=== PATIENT | male | born 1935 | race Caucasian/White ===

== ENCOUNTER 2017-03-16 12:40 | Inpatient (IN) | payer OTHER, BC ==
[2017-03-16] MEDS ORDERED: morphine CARPU-JECT 4 MG/1 ML DISP.SYRIN IVPUSH ONE ×2 (14:52→15:30)
--- NOTE | 2017-03-16 15:13 | PDOC ---
History of Present Illness - General Chief Complaint: Pain, Acute Stated Complaint: BURST APPENDIX Time Seen by Provider: 03/16/17 14:51 - History of Present Illness Initial Comments: 03/16/17 15:12 81 M with h/o ascending aortic aneurysm, BPH, incarcerated R femoral hernia s/p mesh repair, presenting to ER with 1 day of RLQ pain. Pt states that the pain began this morning while eating. It is localized to RLQ without radiation. Pt denies N/V. Denies diarrhea/constipation. Pt states that the pain does not feel similar to his prior femoral hernias, as the location of the pain is higher in his abdomen. Pt denies F/C. Denies dysuria. Denies flank pain. Past History - Past Medical History Allergies/Adverse Reactions: Allergies Allergy/AdvReac Type Severity Reaction Status Date / Time No Known Allergies Allergy Verified 03/16/17 12:42 Home Medications: Ambulatory Orders Omeprazole [Prilosec (RX)] 20 mg PO DAILY 10/27/13 Cardiac Disorders: Yes (aaa last checked 09/2013) COPD: No - Surgical History Abdominal Surgery: Yes (sbo, hernia) Cholecystectomy: Yes GI Surgery: Yes (sbo with hernia repair) Orthopedic Surgery: Yes (rotator cuff x3) - Suicide/Smoking/Psychosocial Hx Smoking History: Never smoked Have you smoked in the past 12 months: No Information on smoking cessation initiated: No Hx Alcohol Use: Yes (wine) Drug/Substance Use Hx: No Substance Use Type: None Hx Substance Use Treatment: No Review of Systems - Review of Systems Comments:: 03/16/17 15:22 "GENERAL/CONSTITUTIONAL: No fever or chills. No weakness. HEAD, EYES, EARS, NOSE AND THROAT: No change in vision. No ear pain or discharge. No sore throat. CARDIOVASCULAR: No chest pain or shortness of breath. RESPIRATORY: No cough, wheezing, or hemoptysis. GASTROINTESTINAL: + RLQ pain. GENITOURINARY: No dysuria, frequency, or change in urination. MUSCULOSKELETAL: No joint or muscle swelling or pain. No neck or back pain. SKIN: No rash NEUROLOGIC: No headache, vertigo, loss of consciousness, or change in strength/ sensation. ENDOCRINE: No increased thirst. No abnormal weight change. HEMATOLOGIC/LYMPHATIC: No anemia, easy bleeding, or history of blood clots. ALLERGIC/IMMUNOLOGIC: No hives or skin allergy. " *Physical Exam - Vital Signs Last Vital Signs Temp Pulse Resp BP Pulse Ox 98.4 F 77 18 142/82 100 03/16/17 12:43 03/16/17 12:43 03/16/17 12:43 03/16/17 12:43 03/16/17 12:43 - Physical Exam Comments: 03/16/17 15:22 "GENERAL: Awake, alert, and fully oriented, in no acute distress HEAD: No signs of trauma EYES: PERRLA, EOMI, sclera anicteric, conjunctiva clear ENT: Auricles normal inspection, hearing grossly normal, nares patent, oropharynx clear without exudates. Moist mucosa NECK: Nontender, no stepoffs, Normal ROM, supple, no lymphadenopathy, JVD, or masses LUNGS: Breath sounds equal, clear to auscultation bilaterally. No wheezes, and no crackles HEART: Regular rate and rhythm, normal S1 and S2, no murmurs, rubs or gallops ABDOMEN: + RLQ tenderness, no palpable masses, no distention EXTREMITIES: Normal range of motion, no edema. No clubbing or cyanosis. No cords, erythema, or tenderness NEUROLOGICAL: Cranial nerves II through XII intact. 5/5 strength and sensation in all extremities, Normal speech, normal gait SKIN: Warm, Dry, normal turgor, no rashes or lesions noted. " ED Treatment Course - LABORATORY CBC & Chemistry Diagram: 03/18/17 08:10 03/17/17 05:15 - RADIOLOGY Radiology Studies Ordered: Category Date Time Status ABDOMEN & PELVIS CT WITH CONTR [CT] Stat CT Scan 03/16/17 14:51 Ordered Medical Decision Making - Medical Decision Making 03/16/17 15:22 81 M with RLQ pain. Concerning for appy vs incarcerated hernia. Pt has ascending aortic aneurysm but no chest pain at this time. - Labs - CTAP - IVF, pain control Pt signed out to oncoming attending at 5PM, pending CT results and possible surgical consultation. Case discussed in detail with oncoming Emergency Physician including history, physical exam and ancillary studies. Oncoming Emergency Physician has assumed care for the patient and will complete the evaluation and treatment. Patient is aware of the plan. *DC/Admit/Observation/Transfer Diagnosis at time of Disposition: Lower abdominal pain - Referrals - Patient Instructions - Post Discharge Activity
[2017-03-16 15:51] LABS: BASO % 0.5 % (0-2.0); EOS % 0.8 % (0-4.5); HEMATOCRIT 43.4 % (35.4-49); HEMOGLOBIN 14.1 GM/dL (11.7-16.9); LYMPH % 5.7 % (8-40); MCH 29.2 pg (25.7-33.7); MCHC 32.5 g/dl (32.0-35.9); MEAN CELL VOLUME 89.8 fl (80-96); MEAN PLT VOLUME 10.6 fl (7.5-11.1); MONO % 5.5 % (3.8-10.2); NEUT % 87.5 % (42.8-82.8); PLATELET COUNT 268 K/MM3 (134-434); RBC 4.84 M/mm3 (4.00-5.60)
[2017-03-16 16:04] LABS: INR 0.95 (0.82-1.09); PROTHROMBIN TIME (PATIENT) 10.7 SEC (9.98-11.88)
[2017-03-16 16:07] LABS: ACTIVATED PTT 34.5 SECONDS (26.9-34.4)
--- NOTE | 2017-03-16 16:10 | HP ---
Admitting History and Physical - Admission Chief Complaint: Severe RLQ pain gradually progressing over the last 2 days. seen today in the office and sent to the ER. History of Present Illness: Thoracic aortic aneurysm. Mild-Mod AI. Episodes SVT S/P inguinal hernia repair. Femoral hernia repair. 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 No: Renal Failure, Renal Inusuff, Cancer, Hematuria, Hemodialysis, Neurogenic Bladder, Renal Calculi, UTI Musculoskeletal: Yes: Osteoarthritis - Past Surgical History Past Surgical History: Yes: Cholecystectomy, Hernia Repair (Recent RIH, SBR) - Smoking History Smoking history: Never smoked Have you smoked in the past 12 months: No - Alcohol/Substance Use Hx Alcohol Use: Yes (wine) - Social History ADL: Independent History of Recent Travel: No Home Medications - Allergies Allergies/Adverse Reactions: Allergies Allergy/AdvReac Type Severity Reaction Status Date / Time No Known Allergies Allergy Verified 03/16/17 12:42 - Home Medications Home Medications: Ambulatory Orders Omeprazole [Prilosec (RX)] 20 mg PO DAILY 10/27/13 Family Disease History - Family Disease History Family History: Unremarkable Review of Systems - Review of Systems Constitutional: reports: Loss of Appetite Eyes: reports: No Symptoms HENT: reports: No Symptoms Neck: reports: No Symptoms Cardiovascular: reports: No Symptoms Respiratory: reports: No Symptoms Gastrointestinal: reports: Abdominal Pain. denies: No Symptoms, Bloating, Constipation, Diarrhea, Dysphagia, Indigestion, Melena, Nausea, Rectal Bleeding , Vomiting, Vomiting Blood, Other Genitourinary: reports: No Symptoms. denies: Burning, Discharge, Dysuria, Flank Pain, Frequency, Hematuria, Incontinence, Lesions, Menses, Pain, Testicular Mass, Testicular Pain, Testicular Swelling, Urgency, Vaginal Bleeding , Other Breasts: reports: No Symptoms Reported Musculoskeletal: reports: No Symptoms Integumentary: reports: No Symptoms Neurological: reports: No Symptoms Endocrine: reports: No Symptoms Hematology/Lymphatic: reports: No Symptoms Psychiatric: reports: No Symptoms Pain Intensity: 9 Physical Examination Vital Signs: Vital Signs Temperature 98.4 F 03/16/17 12:43 Pulse Rate 77 03/16/17 12:43 Respiratory Rate 18 03/16/17 12:43 Blood Pressure 142/82 03/16/17 12:43 O2 Sat by Pulse Oximetry (%) 100 03/16/17 12:43 Constitutional: Yes: Well Nourished, Anxious, Moderate Distress, Pallor Eyes: Yes: Conjunctiva Clear, EOM Intact HENT: Yes: WNL, Atraumatic, Normocephalic Neck: Yes: WNL, Supple, Trachea Midline Cardiovascular: Yes: WNL, Regular Rate and Rhythm Respiratory: Yes: Regular, CTA Bilaterally Gastrointestinal: Yes: Normal Bowel Sounds, Tenderness (RLQ), Tenderness, Rebound. No: WNL, Soft, Abdomen, Obese, Ascites, Distention, Hematemesis, Hemorrhoids, Hepatomegaly, Hernia, Hyperactive Bowel Sounds, Hypoactive Bowel Sounds, Melena, Palpable Mass, Pulsatile Mass, Rectal Bleeding, Splenomegaly, Tenderness, Epigastrium, Vomiting, Other ...Rectal Exam: Yes: Deferred Renal/: Yes: WNL. No: Anuria, Bladder Distention, CVA Tenderness - Left, CVA Tenderness - Right, Smith Present, Hematuria, Incontinence, Menses Present, Oliguria, Polyuria, Scrotal Edema, Urethral Discharge, Other Breast(s): Yes: WNL Musculoskeletal: Yes: WNL Extremities: Yes: WNL Edema: No Peripheral Pulses WNL: Yes Integumentary: Yes: WNL Neurological: Yes: WNL, Alert, Oriented ...Motor Strength: WNL Psychiatric: Yes: WNL Labs: CBC, BMP 03/16/17 15:45 Laboratory Results - last 24 hr 03/16/17 03/16/17 03/16/17 15:16 15:30 15:45 WBC 15.0 H D RBC 4.84 D Hgb 14.1 D Hct 43.4 D MCV 89.8 MCH 29.2 MCHC 32.5 RDW 14.0 Plt Count 268 MPV 10.6 Neutrophils % 87.5 H Lymphocytes % 5.7 L D Monocytes % 5.5 Eosinophils % 0.8 Basophils % 0.5 PT with INR INR PTT (Actin FS) Sodium Potassium Chloride Carbon Dioxide Anion Gap BUN Creatinine Creat Clearance w eGFR Random Glucose Lactic Acid 1.1 Calcium Total Bilirubin AST ALT Alkaline Phosphatase Creatine Kinase 101 Troponin I < 0.02 D Total Protein Albumin Lipase Blood Type Antibody Screen 03/16/17 03/16/17 03/16/17 15:45 15:45 15:45 WBC RBC Hgb Hct MCV MCH MCHC RDW Plt Count MPV Neutrophils % Lymphocytes % Monocytes % Eosinophils % Basophils % PT with INR 10.70 INR 0.95 PTT (Actin FS) 34.5 H Sodium 138 Potassium 4.2 Chloride 101 Carbon Dioxide 29 Anion Gap 8 BUN 19 H Creatinine 1.2 Creat Clearance w eGFR 57.96 Random Glucose 90 Lactic Acid Calcium 9.1 Total Bilirubin 1.1 H D AST 19 D ALT 23 Alkaline Phosphatase 72 Creatine Kinase Troponin I Total Protein 7.8 D Albumin 4.0 D Lipase 130 Blood Type A POSITIVE Antibody Screen Negative Imaging - Results Cat Scan: Report Reviewed Problem List - Problems (1) Acute abdominal pain Code(s): R10.9 - UNSPECIFIED ABDOMINAL PAIN (2) Acute abdomen Assessment/Plan: Free air in the peritoneum, bowl perforation on CT abdomen/pelvis Surgical consulted Surgery. IV ABX. Code(s): R10.0 - ACUTE ABDOMEN
[2017-03-16 16:20] LABS: ALK PHOS 72 U/L (45-117); ANION GAP 8 (8-16); BILIRUBIN,TOTAL 1.1 mg/dL (0.2-1.0); BLOOD UREA NITROGEN 19 mg/dL (7-18); CALCIUM 9.1 mg/dL (8.5-10.1); CHLORIDE 101 mmol/L (98-107); CO2 29 mmol/L (21-32); CREATININE 1.2 mg/dL (0.7-1.3); GLUCOSE,RANDOM 90 mg/dL (74-106); LIPASE 130 U/L (73-393); POTASSIUM 4.2 mmol/L (3.5-5.1); SGOT/AST 19 U/L (15-37); SGPT/ALT 23 U/L (12-78); SODIUM 138 mmol/L (136-145); TOT PROT 7.8 g/dl (6.4-8.2)
[2017-03-16] MEDS ORDERED: HYDROmorphone HCL CARPU-JECT 1 MG/1 ML DISP.SYRIN IVPUSH ONE (17:43)
[2017-03-16] MEDS ORDERED: PIPERACILLIN/TAZOB 3.375 GM 50 ML IVPB ONE (17:48)
[2017-03-16] MEDS ORDERED: HYDROmorphone HCL CARPU-JECT 2 MG/1 ML DISP.SYRIN ONE ×2 (18:00→18:52)
[2017-03-16] MEDS ORDERED: PIPERACILLIN/TAZOB 3.375 GM 3.375 GM/50 ML BAG IVPB ONE (18:01)
[2017-03-16] MEDS ORDERED: HYDROmorphone HCL CARPU-JECT 1 MG/1 ML DISP.SYRIN IVPUSH STA (18:50)
--- NOTE | 2017-03-16 18:54 | PDOC ---
*Physical Exam - Vital Signs Last Vital Signs Temp Pulse Resp BP Pulse Ox 98.4 F 77 18 142/82 100 03/16/17 12:43 03/16/17 12:43 03/16/17 12:43 03/16/17 12:43 03/16/17 12:43 ED Treatment Course - LABORATORY CBC & Chemistry Diagram: 03/16/17 15:45 03/16/17 15:45 - ADDITIONAL ORDERS Additional order review: Laboratory Results 03/16/17 03/16/17 03/16/17 15:45 15:45 15:45 PT with INR 10.70 INR 0.95 PTT (Actin FS) 34.5 H Sodium 138 Potassium 4.2 Chloride 101 Carbon Dioxide 29 Anion Gap 8 BUN 19 H Creatinine 1.2 Creat Clearance w eGFR 57.96 Random Glucose 90 Lactic Acid Calcium 9.1 Total Bilirubin 1.1 H D AST 19 D ALT 23 Alkaline Phosphatase 72 Creatine Kinase Troponin I Total Protein 7.8 D Albumin 4.0 D Lipase 130 Blood Type A POSITIVE Antibody Screen Negative 03/16/17 03/16/17 15:30 15:16 PT with INR INR PTT (Actin FS) Sodium Potassium Chloride Carbon Dioxide Anion Gap BUN Creatinine Creat Clearance w eGFR Random Glucose Lactic Acid 1.1 Calcium Total Bilirubin AST ALT Alkaline Phosphatase Creatine Kinase 101 Troponin I < 0.02 D Total Protein Albumin Lipase Blood Type Antibody Screen 03/16/17 15:45 RBC 4.84 D MCV 89.8 MCHC 32.5 RDW 14.0 MPV 10.6 Neutrophils % 87.5 H Lymphocytes % 5.7 L D Monocytes % 5.5 Eosinophils % 0.8 Basophils % 0.5 - Medications Given in the ED: ED Medications Discontinued Medications Generic Name Dose Route Start Last Admin Trade Name Freq PRN Reason Stop Dose Admin Hydromorphone HCl 0.5 mg 03/16/17 17:43 03/16/17 18:37 Dilaudid Injection - IVPUSH 03/16/17 17:44 0.5 mg ONCE ONE Administration Piperacillin/Tazobactam/Dextrose 50 mls @ 100 mls/hr 03/16/17 17:48 03/16/17 18:38 Zosyn 3.375gm Ivpb (Premix) IVPB 03/16/17 18:17 100 mls/hr ONCE ONE Administration Protocol Morphine Sulfate 4 mg 03/16/17 15:30 03/16/17 16:13 Morphine Injection - IVPUSH 03/16/17 15:31 4 mg ONCE ONE Administration Medical Decision Making - Medical Decision Making 03/16/17 18:52 radiologist called and the ct scan revealed perforated intestine with mesenteric edema called Dr Corral -paged Dr Leigh as per Dr Corral's request -IV antibiotics given *DC/Admit/Observation/Transfer Diagnosis at time of Disposition: Lower abdominal pain - Referrals - Patient Instructions - Post Discharge Activity
[2017-03-16] MEDS ORDERED: SODIUM CHLORIDE 1,000 ML IV SCH (19:00)
[2017-03-16] MEDS ORDERED: PIPERACILLIN/TAZOB 3.375 GM/50 ML PRE-DOCKED IVPB SCH (19:00)
[2017-03-16] MEDS ORDERED: morphine CARPU-JECT 4 MG/1 ML DISP.SYRIN IVPUSH PRN (19:26)
--- NOTE | 2017-03-16 20:48 | PN ---
Progress Note (short form) - Note Progress Note: surgery pt seen and examined. full consult dictated. 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 wbc [address] showing perforated viscous with inflammatory process involving small bowel and trasverse colon causing possible sbo as well. on exam pt is distended with localized rebound and guarding in rlq. pt requiring narcotics for pain. Plan- perforated viscous, localized peritonitis, possible sbo. clinically suspect perforated small bowel secondary to obstruction at previous anastamosis. With peritoneal findings safest option is surgery. Pt may contain the perforation and respond to abx but could also end up with a bowel obstruction from the process. At this point patient and daughter offered surgery and they agree. They are not interested in conservative management. agree with judie. will move in direction of laparotomy and likely small bowel resection. if this involves the colon the patient may require a colostomy.
[2017-03-16] MEDS ORDERED: PROPOFOL 20 ML ONE (20:56)
[2017-03-16] MEDS ORDERED: LIDOCAINE HCL/PF 2% SDV 5ML VIAL ONE (20:56)
[2017-03-16] MEDS ORDERED: ROCURONIUM BROMIDE 50 MG/5 ML VIAL ONE ×2 (20:56→21:49)
[2017-03-16] MEDS ORDERED: ONDANSETRON 4 MG/2 ML VIAL IVPUSH PRN ×2 (20:57→23:05)
[2017-03-16] MEDS ORDERED: ACETAMINOPHEN 325 MG TABLET (FP) PO PRN (20:57)
[2017-03-16] MEDS ORDERED: BENZOIN/ALOE VERA/STORAX/TOLU 58 ML BOTTLE ONE (22:06)
[2017-03-16] MEDS ORDERED: GLYCOPYRROLATE 0.2 MG/1 ML VIAL ONE ×2 (22:08)
[2017-03-16] MEDS ORDERED: NEOSTIGMINE METHYLSULFATE 0.5 MG/ML - 10 ML MDV ONE (22:08)
--- NOTE | 2017-03-16 22:21 | CONS ---
DATE OF CONSULTATION: 03/16/2017 REASON FOR CONSULTATION: Perforated viscus. This is an emergency room consultation. REQUESTING PHYSICIAN: Emergency room physician. BRIEF HISTORY: This is an 81-year-old male with previous small-bowel resection for an incarcerated femoral hernia, who, since that time, had issues with chronic abdominal pain requiring a capsule study and was told to be kept on a low-fiber diet. He states he has not felt quite right for several weeks, but specifically, this morning, he woke up feeling well, but after eating fruit for breakfast, he developed severe abdominal pain, mostly in the right lower quadrant. He did not have fever. He did not have nausea or vomiting. Because of this pain, he came into the emergency room where he has been requiring narcotic medication. He was noted to have an elevated white blood cell count of 15,000 with a shift, and he went for a CAT scan of his abdomen and pelvis which was significant for a perforated viscus with extraluminal air located in the right lower quadrant next to an inflamed loop of small bowel and a previous small-bowel anastomosis. The transverse colon also appeared to be somewhat pulled into this process, and the psychiatric rn was concerned for possible bowel obstruction as well. The patient received 0.5 mg of Dilaudid 2 times, and he received 4 mg of morphine. PAST MEDICAL HISTORY: Significant for arthritis. HOME MEDICATIONS: Include meloxicam, Protonix, and Maalox. SOCIAL HISTORY: Negative for alcohol, negative for tobacco. PAST SURGICAL HISTORY: Includes a femoral hernia repair which appears to be done laparoscopically with a bowel resection. FAMILY HISTORY: Significant for a sister with liver cancer. ALLERGIES: He has no known drug allergies. REVIEW OF SYSTEMS: General: Denies fatigue or malaise. Cardiac: Denies chest pain or palpitations. Respiratory: No shortness of breath or wheeze. Gastrointestinal: As in HPI. Denies diarrhea. Denies blood in his stool. Denies recent weight loss. Genitourinary: Denies dysuria. Musculoskeletal: Admits to arthritic pain, particularly in his shoulder. Psychiatric: Denies anxiety, depression, or hearing voices. PHYSICAL EXAMINATION: General: This is a well-developed, well-nourished, 81-year-old male in no distress. He appears to be comfortable. Vital Signs: He is afebrile currently at 99.1. His heart rate is 87. His blood pressure is 142/74. He is saturating at 95%. HEENT: His head is normocephalic. His sclerae are anicteric. Neck: Supple. Chest: Clear. Abdomen: Soft. It is mildly distended. He has multiple laparoscopic scars. He has significant right lower quadrant tenderness with rebound and guarding. Extremities: No edema. LABORATORY DATA: His white blood cell count is elevated at 15.0, with 87% neutrophils. His PTT is slightly elevated at 34, but his INR is normal. His chemistries are unremarkable with the exception of a mildly elevated total bilirubin of 1.1. His lactic acid is normal at 1.1. IMAGING: As in HPI. ASSESSMENT: An 81-year-old male with history of previous small-bowel resection, told to be on a low-fiber diet after a significant small-bowel workup postoperatively, presents with severe abdominal pain, leukocytosis, and localized peritonitis on physical exam. CAT scan is consistent with a perforated viscus with a likely bubble of air located within the small bowel mesentery, although this is not for certain. That inflammatory process appears to involve the small bowel including the anastomosis from before as well as pulling in the transverse colon. The possibility of a small-bowel obstruction is noted as well. At this point, I suspect he has perforated small bowel at the location of his anastomosis, and it likely has perforated into the small bowel mesentery which is keeping his exam findings localized. The safest bet would be to proceed with surgery which would be a laparotomy and likely a small-bowel resection. The patient is 81 years old and currently still remains stable, and this is his best shot at having a safe surgery prior to any deterioration. Although it is possible that he may respond well to antibiotics and the perforation may seal itself, the fact that there is possibly a bowel obstruction already showing on CAT scan which means that even if the infection is contained, he may not be able to eat without surgery, and the longer that we wait, the more deconditioned he will be and the less likely he will have a good outcome. At this point, I have offered the patient and his daughter emergency surgery, and they both are agreeable. They do not wish to attempt conservative management. At this point, we will move in the direction of surgery which again will likely be a laparotomy and a small-bowel resection, although if this does involve the large intestine, he may require a colostomy. The patient and his daughter understand this. I agree with Zosyn antibiotic which will cover E. coli and other gram negative and enteric-related sarah. Risks and benefits of surgery have been explained to the patient in detail. These are including, but not limited to, the possibility of injury to viscera or bladder, the possibility of anastomotic leak, the possibility of future obstruction, the possibility of future hernia, the possibility of wound infection, the possibility of wound dehiscence, plus a multitude of medical risks including, but not limited to, cardiac, neurologic, pulmonary, and vascular complications, even . The patient also may bleed, requiring a blood transfusion. He understands these risks. He understands that he may require an ostomy of some sort. At this point, the patient is agreeable, and we will move in the direction of surgery. DO KATHY MELCHOR/[id number]
--- NOTE | 2017-03-16 22:30 | OP ---
Operative Note - Note: Operative Date: 03/16/17 Pre-Operative Diagnosis: perforated viscous Operation: exploratory laparotomy, small bowel resection, lysis of adhesions Findings: perforated ileal anastamosis into mesentery with dense adhesions and proximal bowel densely adhesed to femoral mesh Post-Operative Diagnosis: Same as Pre-op Surgeon: Elmer Webb Anesthesiologist/CLINICAL TRIAL LEADER: Elmer Parisi Anesthesia: General Specimens Removed: perfoated ileum with fecal stained mesentery and fecalized content Estimated Blood Loss (mls): 50 Operative Report Dictated: Yes
[2017-03-16] MEDS ORDERED: MIDAZOLAM HCL 2 MG/2 ML SINGLE DOSE VIAL ONE (22:42)
[2017-03-16] MEDS ORDERED: FLUMAZENIL 0.5 MG/5 ML VIAL ONE (22:47)
[2017-03-16] MEDS ORDERED: PROMETHAZINE HCL 25 MG/1 ML VIAL IVPUSH PRN (23:05)
[2017-03-16] MEDS ORDERED: oxyCODONE HCL 5 MG TABLET PO PRN (23:05)
[2017-03-16] MEDS ORDERED: LACTATED RINGERS SOLUTION 1,000 ML IV SCH (23:15)
--- NOTE | 2017-03-16 23:34 | OP ---
DATE OF OPERATION: 03/16/2017 PREOPERATIVE DIAGNOSIS: Perforated viscus. POSTOPERATIVE DIAGNOSIS: Perforated viscus. PROCEDURE: Exploratory laparotomy, lysis of adhesions, small bowel resection, lavage. SURGEON: Elmer Webb D.O. BULK TRUCK DRIVER: None. ANESTHESIA: Elmer Parisi M.D. (general) BRIEF HISTORY: This is an 81-year-old male, presented to the [facility] emergency room with peritoneal findings and a CAT scan showing perforated viscus. He was brought for urgent surgery and started on Zosyn antibiotic. PROCEDURE: Patient is placed in a supine position. After general anesthesia was initiated, the abdomen was prepped and draped in a sterile fashion, and Smith catheter was inserted as well as a nasogastric tube. A vertical incision was made supraumbilical going inferior approximately 5 inches. Electrocautery was used going through skin and subcutaneous tissue. Previous Prolene sutures were removed. The peritoneum was entered sharply under direct visualization. At this point, a loop of ileum was densely adhesed to the abdominal wall and carefully taken down. This led right into an anastomotic area of edematous bowel. This was delivered into the abdominal field. The mesentery was swollen, and there appeared to be an area of perforation within the mesentery with focalized material staining it. This anastomotic area that appeared to have perforated was run distal into the terminal ileum and the cecum. It was run proximally approximately 1 foot, at which point it dove into the pelvis and was densely adhesed to a mesh from a previous femoral hernia repair. This was quite densely attached, and it appeared to be difficult to remove without injuring the bowel or any structures that it may be attached to. The bowel was dilated up to the anastomosis, and therefore it was felt that this adhesed area in the pelvis was not a source of obstruction. The decision was made at this point to do a small bowel resection anastomosis and not continue with an extensive lysis of adhesions in this 81-year-old patient who was suffering from peritonitis in an acute event. At this point, a side to side anastomosis was done from proximal and distal bowel from the area of perforation. This was done with a GIA80 staple load. The enterotomy was then closed with a TA60 staple load. The area of perforation and anastomosis that was done in the previous surgery was then resected with a Ligasure device and sent to pathology marked as specimen. The mesenteric defect was closed with a running chromic suture. The anastomosis that was inspected was intact, there was no bleeding, no breaks, no sign of ischemia. able to be detached from proximal to distal and distal to proximal and manual palpation showed that the anastomosis was patent. At this point, the bowel that was reanastomosed was placed back into the abdominal cavity. Vigorous lavage was done with warm saline. All return was clear. Again, the area of proximal bowel to the anastomosis that was stuck in the pelvis was reinspected and again it was felt that this was unable to be safely removed without adding extensive OR time and likely requiring further bowel resection. It was felt that the safest thing to do was to limit the operation to the scope of fixing the acute problem and perforation that brought the patient in. At this point, the fascia of the midline was closed with running PDS suture. The fascia had good integrity. There was a small ventral hernia which was incorporated in the closure and repaired. The skin was then irrigated and closed with sole, and Dermabond dressing was placed. Overall the patient tolerated the procedure well with no complications. Blood loss was approximately 50 mL. The patient's disposition was to go to the recovery room, then to the intensive care unit for overnight observation. Smith catheter and NG tube would remain in place. DO KATHY MELCHOR/[id number] MTDD
[2017-03-17] MEDS ORDERED: morphine CARPU-JECT 10 MG/1 ML DISP.SYRIN IVPUSH PRN (00:08)
[2017-03-17] MEDS: SODIUM CHLORIDE 1,000 ML IV SCH ×2 (00:30→18:43)
[2017-03-17] MEDS ORDERED: PIPERACILLIN/TAZOB 4.5 GM 4.5 GM in DEXTROSE 5%-WATER - 100 ML IVPB SCH (02:00)
[2017-03-17] MEDS ORDERED: PIPERACILLIN/TAZOB 4.5 GM 4.5 GM in DEXTROSE 5%-WATER - 100 ML IVPB ONE (02:15)
[2017-03-17 02:46] VITALS: BMI 26.3
--- NOTE | 2017-03-17 05:40 | CONSULT ---
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 He was taken to OR last night for small bowel resection at site of old anastomosis , there was minimal leak and not signifcant soiling. Pt was extubated in PACU, was hemodynamically stable. Pt cont on Pip/Sundar for broad coverage. Tx to ICU for overnight observation. This am stable and ready for tx to floor. 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),Aortic Insufficiency (SVT),Other Gastrointestinal Other (SBO) Renal/ BPH (BPH),Other Past Surgical History Past Surgical History Cholecystectomy (Recent RIH, SBR),Hernia Repair Smoking History Smoking history Never smoked Alcohol/Substance Use Hx Alcohol Use Yes: wine Social History ADL Independent History of Recent Travel No Ambulatory Orders Omeprazole [Prilosec (RX)] 20 mg PO DAILY 10/27/13 Active Medications Acetaminophen (Tylenol -) 650 mg PO Q4H PRN PRN Reason: FEVER Chlorhexidine Gluconate (Hibiclens For Decolonization -) 1 applic TP HS TAWNY Enoxaparin Sodium (Lovenox -) 40 mg SQ DAILY TAW[facility] Fentanyl (Sublimaze Injection -) 25 mcg IVPUSH [id number] PRN PRN Reason: PAIN-PACU ORDER X 4 DOSES ONLY Last Admin: 03/16/17 22:38 Dose: 25 mcg Lactated Ringer's (Lactated Ringers Solution) 1,000 mls @ 75 mls/hr IV ASDIR [facility] Piperacillin Sod/Tazobactam (Sod 4.5 gm/ Dextrose) 100 mls @ 200 mls/hr IVPB Q8H-IV [facility] Sodium Chloride (Normal Saline -) 1,000 mls @ 125 mls/hr IV ASDIR [facility] Last Admin: 03/17/17 00:30 Dose: 100 mls Morphine Sulfate (Morphine Injection -) 4 mg IVPUSH Q4H PRN PRN Reason: PAIN LEVEL 6-10 Mupirocin (Bactroban Ointment (For Decolonization) -) 1 applic NS BID [facility] Stop: 03/22/17 09:59 Ondansetron HCl (Zofran Injection) 4 mg IVPUSH Q6H PRN PRN Reason: NAUSEA Ondansetron HCl (Zofran Injection) 4 mg IVPUSH Q6H PRN PRN Reason: NAUSEA AND/OR VOMITING Oxycodone HCl (Roxicodone -) 5 mg PO Q4H PRN PRN Reason: Pain Level > 4 Stop: 03/17/17 23:04 Pantoprazole Sodium (Protonix Iv) 40 mg IVPUSH DAILY TAW[facility] Promethazine HCl (Phenergan Injection -) 12.5 mg IVPUSH Q6H PRN PRN Reason: NAUSEA-FOR RESCUE AFTER 15 MIN CBCD WBC 15.0 K/mm3 (4.0-10.0) H D 03/16/17 15:45 RBC 4.84 M/mm3 (4.00-5.60) D 03/16/17 15:45 Hgb 14.1 GM/dL (11.7-16.9) D 03/16/17 15:45 Hct 43.4 % (35.4-49) D 03/16/17 15:45 MCV 89.8 fl (80-96) 03/16/17 15:45 MCHC 32.5 g/dl (32.0-35.9) 03/16/17 15:45 RDW 14.0 % (11.9-15.9) 03/16/17 15:45 Plt Count 268 K/MM3 (134-434) 03/16/17 15:45 MPV 10.6 fl (7.5-11.1) 03/16/17 15:45 CMP Sodium 138 mmol/L (136-145) 03/16/17 15:45 Potassium 4.2 mmol/L (3.5-5.1) 03/16/17 15:45 Chloride 101 mmol/L (98-107) 03/16/17 15:45 Carbon Dioxide 29 mmol/L (21-32) 03/16/17 15:45 Anion Gap 8 (8-16) 03/16/17 15:45 BUN 19 mg/dL (7-18) H 03/16/17 15:45 Creatinine 1.2 mg/dL (0.7-1.3) 03/16/17 15:45 Creat Clearance w eGFR 57.96 (>60) 03/16/17 15:45 Random Glucose 90 mg/dL (74-106) 03/16/17 15:45 Calcium 9.1 mg/dL (8.5-10.1) 03/16/17 15:45 Total Bilirubin 1.1 mg/dL (0.2-1.0) H D 03/16/17 15:45 AST 19 U/L (15-37) D 03/16/17 15:45 ALT 23 U/L (12-78) 03/16/17 15:45 Alkaline Phosphatase 72 U/L (45-117) 03/16/17 15:45 Total Protein 7.8 g/dl (6.4-8.2) D 03/16/17 15:45 Albumin 4.0 g/dl (3.4-5.0) D 03/16/17 15:45 CARDIAC ENZYMES Creatine Kinase 101 IU/L (39-308) 03/16/17 15:16 Troponin I < 0.02 ng/ml (0.00-0.05) D 03/16/17 15:16 Vital Signs Temp 98.6 F 03/17/17 02:43 Pulse 71 03/17/17 02:43 Resp 18 03/17/17 02:43 BP 117/71 03/17/17 02:43 Pulse Ox 95 03/17/17 02:54 Intake & Output 03/16/17 03/16/17 03/17/17 11:59 23:59 11:59 Intake Total 2700 100 Output Total 200 230 200 Balance -200 2470 -100 Weight 81.193 kg 80.83 kg Intake: IV 2700 100 Output: Urine 200 200 200 Estimated Blood Loss 30 Other: Voiding Method Indwelling Catheter Height 5 ft 9 in 5 ft 9 in Body Mass Index (BMI) 26.4 26.3 Weight Measurement Method Est/Stated by Patient ROS: 10 pt review negative except as per HPI PE: Gen: awake, alert, non-toxic HEENT: NCAT, no jvp, PERRL PULM: clear, no distress CV: RRR, no mrg appreciated ABD: soft, still tend RU/LQ, near absent bowel sounds (denies flatus), incision CDI EXT:w/w/p 2+ pulses, no edema Neuro: intact, pleasant, non focal exam A/ POD #1 after Small bowel resection in ICU for overnight observation P/ -NPO until flatus/BS -cont Pip/Sundar -PPI and SCD -ok for med/surg Clyde Ashley ACNP [id number]
[2017-03-17 06:19] LABS: BASO % 0.1 % (0-2.0); HEMATOCRIT 33.5 % (35.4-49); HEMOGLOBIN 10.8 GM/dL (11.7-16.9); LYMPH % 4.1 % (8-40); MCH 28.7 pg (25.7-33.7); MCHC 32.2 g/dl (32.0-35.9); MEAN CELL VOLUME 89.2 fl (80-96); MEAN PLT VOLUME 10.4 fl (7.5-11.1); MONO % 5.2 % (3.8-10.2); NEUT % 90.6 % (42.8-82.8); PLATELET COUNT 200 K/MM3 (134-434); RBC 3.75 M/mm3 (4.00-5.60); RDW 13.8 % (11.9-15.9); WHITE BLOOD COUNT 16.4 K/mm3 (4.0-10.0)
[2017-03-17 06:41] LABS: CHLORIDE 106 mmol/L (98-107); POTASSIUM 4.4 mmol/L (3.5-5.1); SODIUM 141 mmol/L (136-145)
[2017-03-17 06:50] LABS: ALBUMIN 2.5 g/dl (3.4-5.0); ALK PHOS 94 U/L (45-117); ANION GAP 7 (8-16); BILIRUBIN,TOTAL 2.6 mg/dL (0.2-1.0); BLOOD UREA NITROGEN 18 mg/dL (7-18); CALCIUM 7.4 mg/dL (8.5-10.1); CO2 28 mmol/L (21-32); CREATININE 1.2 mg/dL (0.7-1.3); GLUCOSE,RANDOM 135 mg/dL (74-106); MAGNESIUM 1.7 mg/dL (1.8-2.4); PHOSPHOROUS 3.6 mg/dL (2.5-4.9); SGOT/AST 174 U/L (15-37); SGPT/ALT 161 U/L (12-78); TOT PROT 5.1 g/dl (6.4-8.2)
[2017-03-17] MEDS ORDERED: MAGNESIUM SULF 50% (8.12 MEQ/2 ML-1 GM VIAL) IVPB ONE (07:38)
[2017-03-17] MEDS ORDERED: MAGNESIUM OXIDE 400 MG TABLET (FP) PO ONE (07:38)
[2017-03-17] MEDS ORDERED: MAGNESIUM SULFATE IN WATER 2 GM/50 ML IVPB IVPB ONE (08:00)
--- NOTE | 2017-03-17 08:50 | PN ---
Physical Exam: SUBJECTIVE: Patient seen and examined The patient is an 81 year old male with a history of an incarcerated femoral hernia, SVT, a TAAA who presented for severe abdominal pain over 1 day found to have a perforated viscous and admitted to the ICU s/p a small bowel resection. The patient reports significant improvement in his symptoms from 1 day ago and has no complaints this morning. No acute events overnight. OBJECTIVE: Vital Signs Period Temp Pulse Resp BP Sys/Carballo Pulse Ox Last 24 Hr 98.4 F-99.1 F 68-144 12-30 89-163/52-82 60-100 GENERAL: The patient is awake, alert, and fully oriented, in no acute distress. HEAD: Normal with no signs of trauma. EYES: sclera anicteric, conjunctiva clear. No ptosis. ENT: oropharynx clear without exudates, moist mucous membranes. NECK: Trachea midline, full range of motion, supple. LUNGS: Breath sounds equal, clear to auscultation bilaterally, no wheezes, no crackles, no accessory muscle use. HEART: Regular rate and rhythm, S1, S2 without murmur, rub or gallop. ABDOMEN: Vertical incision with a dry dressing and sole in place. Soft, nontender, nondistended, no guarding, no rebound, no hepatosplenomegaly, no masses. EXTREMITIES: 2+ pulses, warm, well-perfused, no edema. NEUROLOGICAL: Normal speech, gait not observed. PSYCH: Normal mood, normal affect. SKIN: Warm, dry, normal turgor, no rashes or lesions noted Laboratory Results - last 24 hr 03/16/17 03/16/17 03/16/17 15:16 15:30 15:45 WBC 15.0 H D RBC 4.84 D Hgb 14.1 D Hct 43.4 D MCV 89.8 MCH 29.2 MCHC 32.5 RDW 14.0 Plt Count 268 MPV 10.6 Neutrophils % 87.5 H Lymphocytes % 5.7 L D Monocytes % 5.5 Eosinophils % 0.8 Basophils % 0.5 PT with INR INR PTT (Actin FS) Sodium Potassium Chloride Carbon Dioxide Anion Gap BUN Creatinine Creat Clearance w eGFR Random Glucose Lactic Acid 1.1 Calcium Phosphorus Magnesium Total Bilirubin AST ALT Alkaline Phosphatase Creatine Kinase 101 Troponin I < 0.02 D Total Protein Albumin Lipase Blood Type Antibody Screen 03/16/17 03/16/1718 15:45 15:45 15:45 WBC RBC Hgb Hct MCV MCH MCHC RDW Plt Count MPV Neutrophils % Lymphocytes % Monocytes % Eosinophils % Basophils % PT with INR 10.70 INR 0.95 PTT (Actin FS) 34.5 H Sodium 138 Potassium 4.2 Chloride 101 Carbon Dioxide 29 Anion Gap 8 BUN 19 H Creatinine 1.2 Creat Clearance w eGFR 57.96 Random Glucose 90 Lactic Acid Calcium 9.1 Phosphorus Magnesium Total Bilirubin 1.1 H D AST 19 D ALT 23 Alkaline Phosphatase 72 Creatine Kinase Troponin I Total Protein 7.8 D Albumin 4.0 D Lipase 130 Blood Type A POSITIVE Antibody Screen Negative 03/16/17 03/17/17 03/17/17 19:00 05:15 05:15 WBC 16.4 H RBC 3.75 L D Hgb 10.8 L D Hct 33.5 L D MCV 89.2 MCH 28.7 MCHC 32.2 RDW 13.8 Plt Count 200 D MPV 10.4 Neutrophils % 90.6 H Lymphocytes % 4.1 L D Monocytes % 5.2 Eosinophils % 0.0 D Basophils % 0.1 PT with INR INR PTT (Actin FS) Sodium 141 Potassium 4.4 Chloride 106 Carbon Dioxide 28 Anion Gap 7 L BUN 18 Creatinine 1.2 Creat Clearance w eGFR 57.96 Random Glucose 135 H D Lactic Acid Calcium 7.4 L Phosphorus 3.6 Magnesium 1.7 L Total Bilirubin 2.6 H D AST 174 H D ALT 161 H D Alkaline Phosphatase 94 D Creatine Kinase Troponin I Total Protein 5.1 L D Albumin 2.5 L D Lipase Blood Type A POSITIVE Antibody Screen Negative Active Medications Generic Name Dose Route Start Last Admin Trade Name Freq PRN Reason Stop Dose Admin Acetaminophen 650 mg 03/16/17 20:57 Tylenol - PO Q4H PRN FEVER Chlorhexidine Gluconate 1 applic 03/17/17 22:00 Hibiclens For Decolonization - TP HS TAWNY Enoxaparin Sodium 40 mg 03/17/17 10:00 Lovenox - SQ DAILY TAWNY Fentanyl 25 mcg 03/16/17 23:05 03/16/17 22:38 Sublimaze Injection - IVPUSH 25 mcg [id number] PRN Administration PAIN-PACU ORDER X 4 DOSES ONLY Lactated Ringer's 1,000 mls @ 75 mls/hr 03/16/17 23:15 Lactated Ringers Solution IV ASDIR TAWNY Piperacillin Sod/Tazobactam 100 mls @ 200 mls/hr 03/17/17 02:00 Sod 4.5 gm/ Dextrose IVPB Q8H-IV TAWNY Sodium Chloride 1,000 mls @ 125 mls/hr 03/17/17 00:08 03/17/17 00:30 Normal Saline - IV 100 mls ASDIR TAWNY Administration MAGNESIUM SULFATE IN WATER 2 gm in 50 mls @ 50 mls/hr 03/17/17 08:00 Magnesium Sulf 2 G/50 Ml Bag IVPB 03/17/17 08:59 ONCE ONE Morphine Sulfate 4 mg 03/17/17 00:08 Morphine Injection - IVPUSH Q4H PRN PAIN LEVEL 6-10 Mupirocin 1 applic 03/17/17 10:00 Bactroban Ointment (For Decolonization) - NS 03/22/17 09:59 BID TAWNY Ondansetron HCl 4 mg 03/16/17 20:57 Zofran Injection IVPUSH Q6H PRN NAUSEA Ondansetron HCl 4 mg 03/16/17 23:05 Zofran Injection IVPUSH Q6H PRN NAUSEA AND/OR VOMITING Oxycodone HCl 5 mg 03/16/17 23:05 Roxicodone - PO 03/17/17 23:04 Q4H PRN Pain Level > 4 Pantoprazole Sodium 40 mg 03/17/17 10:00 Protonix Iv IVPUSH DAILY TAWNY Promethazine HCl 12.5 mg 03/16/17 23:05 Phenergan Injection - IVPUSH Q6H PRN NAUSEA-FOR RESCUE AFTER 15 MIN ASSESSMENT/PLAN: The patient is an 81 year old male with a history of an incarcerated femoral hernia, SVT, a TAAA who presented for severe abdominal pain over 1 day found to have a perforated viscous and admitted to the ICU s/p a small bowel resection. NEURO No Issues currently. -Awake and Oriented x3 CV #TAAA Stable at this time. -Will continue to monitor RESP No Issues currently. -Will continue to monitor GI #Perforated viscous s/p small bowel resection. The patient is reporting significant improvement in his symptoms at this time with a well healing surgical wound site. -Patient is currently NPO. -Will continue to monitor. Heme No issues currently. -Will continue to monitor. Renal -Stable BUN/creatinine -Will continue to monitor. ID #Perforated viscous -Patient currently being covered by zosyn for perforated viscous. -Continue zosyn. MSK No issues currently FEN/GI -Replete electrolytes PRN, will monitor -Continue maintenance fluids. PPX -Continue lovenox -Continue protonix. DISPO: Stable for floor pending clearance by surgery. Visit type - Emergency Visit Emergency Visit: No - New Patient This patient is new to me today: No - Critical Care Critical Care patient: No
--- NOTE | 2017-03-17 09:38 | PN ---
Progress Note (short form) - Note Progress Note: Pt is day#1 s/p lap small bowel resection. Doing well in ICU, stable, no anesthetic issues/complications. Continue current care
[2017-03-17] MEDS: PANTOPRAZOLE SODIUM 40 MG VIAL IVPUSH SCH (09:56)
[2017-03-17] MEDS: MUPIROCIN 2% TOPICAL OINTMENT FOR DECOLONIZATION NS SCH ×2 (09:56→21:32)
[2017-03-17] MEDS: ENOXAPARIN NA (PORCINE) 40 MG/0.4 ML DISP.SYRIN SQ SCH (09:56)
[2017-03-17] MEDS: PIPERACILLIN/TAZOB 4.5 GM 4.5 GM in DEXTROSE 5%-WATER - 100 ML IVPB SCH ×2 (10:59→18:44)
--- NOTE | 2017-03-17 12:03 | PN ---
Progress Note, Physician Chief Complaint: day 1 post exp lap with enterorotomy due to peritonitis and perforated viscus. Now awake, alert, comfortable in ICU. Spoke to daughter. History of Present Illness: Thoracic aortic aneurysm. Mild-Mod AI. Episodes SVT S/P inguinal hernia repair. Femoral hernia repair. Previous SBO Cholecystectomy - Current Medication List Current Medications: Active Medications Acetaminophen (Tylenol -) 650 mg PO Q4H PRN PRN Reason: FEVER Chlorhexidine Gluconate (Hibiclens For Decolonization -) 1 applic TP HS [facility] Enoxaparin Sodium (Lovenox -) 40 mg SQ DAILY [facility] Last Admin: 03/17/17 09:56 Dose: 40 mg Fentanyl (Sublimaze Injection -) 25 mcg IVPUSH [id number] PRN PRN Reason: PAIN-PACU ORDER X 4 DOSES ONLY Last Admin: 03/16/17 22:38 Dose: 25 mcg Lactated Ringer's (Lactated Ringers Solution) 1,000 mls @ 75 mls/hr IV ASDIR [facility] Piperacillin Sod/Tazobactam (Sod 4.5 gm/ Dextrose) 100 mls @ 200 mls/hr IVPB Q8H-IV [facility] Last Admin: 03/17/17 10:59 Dose: 200 mls/hr Sodium Chloride (Normal Saline -) 1,000 mls @ 125 mls/hr IV ASDIR [facility] Last Admin: 03/17/17 00:30 Dose: 100 mls Morphine Sulfate (Morphine Injection -) 4 mg IVPUSH Q4H PRN PRN Reason: PAIN LEVEL 6-10 Mupirocin (Bactroban Ointment (For Decolonization) -) 1 applic NS BID [facility] Stop: 03/22/17 09:59 Last Admin: 03/17/17 09:56 Dose: 1 applic Ondansetron HCl (Zofran Injection) 4 mg IVPUSH Q6H PRN PRN Reason: NAUSEA Ondansetron HCl (Zofran Injection) 4 mg IVPUSH Q6H PRN PRN Reason: NAUSEA AND/OR VOMITING Oxycodone HCl (Roxicodone -) 5 mg PO Q4H PRN PRN Reason: Pain Level > 4 Stop: 03/17/17 23:04 Pantoprazole Sodium (Protonix Iv) 40 mg IVPUSH DAILY [facility] Last Admin: 03/17/17 09:56 Dose: 40 mg Promethazine HCl (Phenergan Injection -) 12.5 mg IVPUSH Q6H PRN PRN Reason: NAUSEA-FOR RESCUE AFTER 15 MIN - Objective Vital Signs: Vital Signs Temperature 98.7 F 03/17/17 10:00 Pulse Rate 75 03/17/17 10:00 Respiratory Rate 18 03/17/17 10:00 Blood Pressure 109/62 03/17/17 10:00 O2 Sat by Pulse Oximetry (%) 95 03/17/17 02:54 Constitutional: Yes: Anxious, Mild Distress, Other Eyes: Yes: Conjunctiva Clear HENT: Yes: Atraumatic, Normocephalic Neck: Yes: Supple, Trachea Midline. No: Decreased ROM, Lymphadenopathy Cardiovascular: Yes: Regular Rate and Rhythm Respiratory: Yes: Regular, CTA Bilaterally Gastrointestinal: Yes: Hypoactive Bowel Sounds, Tenderness (Post-op). No: Vomiting ...Rectal Exam: Yes: Deferred Genitourinary: No: Anuria Breast(s): Yes: WNL Musculoskeletal: Yes: WNL Extremities: No: Amputation, Calf Tenderness, Cyanosis Edema: No Peripheral Pulses WNL: Yes Integumentary: Yes: WNL Wound/Incision: Yes: Clean/Dry Neurological: Yes: WNL ...Motor Strength: WNL Psychiatric: Yes: WNL Labs: CBC, BMP 03/17/17 05:15 03/17/17 05:15 INR, PTT INR 0.95 (0.82-1.09) 03/16/17 15:45 Problem List - Problems (1) Acute abdominal pain Assessment/Plan: Perforated viscus. Devonte post-op day 1 Code(s): R10.9 - UNSPECIFIED ABDOMINAL PAIN (2) Acute abdomen Assessment/Plan: IV Zosyn, NPO NGT Smith. IV fluids Code(s): R10.0 - ACUTE ABDOMEN (3) Paroxysmal SVT (supraventricular tachycardia) Assessment/Plan: Continue monitoring. Code(s): I47.1 - SUPRAVENTRICULAR TACHYCARDIA
--- NOTE | 2017-03-17 12:48 | PN ---
Teaching Attending Note Name of Resident: Kwabena Hughes ATTENDING PHYSICIAN STATEMENT I saw and evaluated the patient. I reviewed the resident's note and discussed the case with the resident. I agree with the resident's findings and plan as documented. SUBJECTIVE: Patient seen and examined in the ICU. Awake and alert. Some mild abdominal discomfort. No CP or SOB. Intake & Output 03/14/17 03/15/17 03/16/17 03/17/17 23:59 23:59 23:59 23:59 Intake Total 2700 100 Output Total 430 200 Balance 2270 -100 Weight 179 lb 178 lb 3.2 oz Last Vital Signs Temp Pulse Resp BP Pulse Ox 98.7 F 75 18 109/62 95 03/17/17 10:00 03/17/17 10:00 03/17/17 10:00 03/17/17 10:00 03/17/17 02:54 Active Medications Acetaminophen (Tylenol -) 650 mg PO Q4H PRN PRN Reason: FEVER Chlorhexidine Gluconate (Hibiclens For Decolonization -) 1 applic TP HS [facility] Enoxaparin Sodium (Lovenox -) 40 mg SQ DAILY [facility] Last Admin: 03/17/17 09:56 Dose: 40 mg Fentanyl (Sublimaze Injection -) 25 mcg IVPUSH [id number] PRN PRN Reason: PAIN-PACU ORDER X 4 DOSES ONLY Last Admin: 03/16/17 22:38 Dose: 25 mcg Lactated Ringer's (Lactated Ringers Solution) 1,000 mls @ 75 mls/hr IV ASDIR [facility] Piperacillin Sod/Tazobactam (Sod 4.5 gm/ Dextrose) 100 mls @ 200 mls/hr IVPB Q8H-IV [facility] Last Admin: 03/17/17 10:59 Dose: 200 mls/hr Sodium Chloride (Normal Saline -) 1,000 mls @ 125 mls/hr IV ASDIR TAWNY Last Admin: 03/17/17 00:30 Dose: 100 mls Morphine Sulfate (Morphine Injection -) 4 mg IVPUSH Q4H PRN PRN Reason: PAIN LEVEL 6-10 Mupirocin (Bactroban Ointment (For Decolonization) -) 1 applic NS BID [facility] Stop: 03/22/17 09:59 Last Admin: 03/17/17 09:56 Dose: 1 applic Ondansetron HCl (Zofran Injection) 4 mg IVPUSH Q6H PRN PRN Reason: NAUSEA Ondansetron HCl (Zofran Injection) 4 mg IVPUSH Q6H PRN PRN Reason: NAUSEA AND/OR VOMITING Oxycodone HCl (Roxicodone -) 5 mg PO Q4H PRN PRN Reason: Pain Level > 4 Stop: 03/17/17 23:04 Pantoprazole Sodium (Protonix Iv) 40 mg IVPUSH DAILY TAWNY Last Admin: 03/17/17 09:56 Dose: 40 mg Promethazine HCl (Phenergan Injection -) 12.5 mg IVPUSH Q6H PRN PRN Reason: NAUSEA-FOR RESCUE AFTER 15 MIN GENERAL: The patient is awake, alert, and fully oriented, in mild discomfort HEAD: Normal with no signs of trauma. EYES: sclera anicteric, conjunctiva clear. No ptosis. ENT: dry mucous membranes. NECK: Trachea midline, full range of motion, supple. LUNGS: Breath sounds equal, clear to auscultation bilaterally, no wheezes, no crackles, no accessory muscle use. HEART: Regular rate and rhythm, S1, S2 without murmur, rub or gallop. ABDOMEN: Vertical incision with a dry dressing and sole in place. (+) Mild appropriate discomfort EXTREMITIES: 2+ pulses, warm, well-perfused, no edema. NEUROLOGICAL: Non-focal PSYCH: Normal mood, normal affect. SKIN: Warm, dry, normal turgor, no rashes or lesions noted IMP: S/P Small Bowel Resection Incarcerated femoral hernia SVT AAA PLAN: IVF Pain control VTE prophylaxis / Lovenox PO when OK with surgery Noted Empiric ABX Incentive Spirometry Dr Alves Critical care time spent in reviewing chart, evaluating patient and formulating plan - 36 minutes.
--- NOTE | 2017-03-17 14:59 | PN ---
Progress Note (short form) - Note Progress Note: surgery pt seen and examined. awake and alert. not hungry. no pain. ngt with minimal output. gillis in. afebrile abd- soft, incision with mild hematoma drainage, nt, mild distension Laboratory Tests 03/17/17 03/17/17 05:15 05:15 WBC 16.4 H Hgb 10.8 L D Neutrophils % 90.6 H Magnesium 1.7 L Total Bilirubin 2.6 H D AST 174 H D ALT 161 H D Alkaline Phosphatase 94 D A/P 1) pod#1- cont npo, cont ngt, d/c gillis, cont ivf 2) perforated small bowel- cont zosy, expect ileus to last several days 3) hypomagnesemia- will replace 4) elevated lfts- ? sepsis, will follow 5) surgically stable for transfer to regular floor 6) prophylaxis- lovenox, protonix, oob, spirometer, pt eval
[2017-03-17] MEDS ORDERED: CHLORHEXIDINE GLUCONATE 4% CLEANSER FOR DECOLONIZATION TP SCH (22:00)
[2017-03-18] MEDS: PIPERACILLIN/TAZOB 4.5 GM 4.5 GM in DEXTROSE 5%-WATER - 100 ML IVPB SCH ×3 (01:39→18:08)
[2017-03-18] MEDS ORDERED: METOPROLOL TARTRATE 5 MG/5 ML VIAL IVPUSH PRN (07:46)
--- NOTE | 2017-03-18 07:53 | PN ---
Progress Note, Physician Chief Complaint: Day 2 post exp lap C/o mild increase in BP Elevated BP Smith is out History of Present Illness: Thoracic aortic aneurysm. Mild-Mod AI. Episodes SVT S/P inguinal hernia repair. Femoral hernia repair. Previous SBO Cholecystectomy - Current Medication List Current Medications: Active Medications Acetaminophen (Tylenol -) 650 mg PO Q4H PRN PRN Reason: FEVER Chlorhexidine Gluconate (Hibiclens For Decolonization -) 1 applic TP HS [facility] Last Admin: 03/17/17 21:32 Dose: Not Given Enoxaparin Sodium (Lovenox -) 40 mg SQ DAILY [facility] Last Admin: 03/17/17 09:56 Dose: 40 mg Fentanyl (Sublimaze Injection -) 25 mcg IVPUSH [id number] PRN PRN Reason: PAIN-PACU ORDER X 4 DOSES ONLY Last Admin: 03/16/17 22:38 Dose: 25 mcg Piperacillin Sod/Tazobactam (Sod 4.5 gm/ Dextrose) 100 mls @ 200 mls/hr IVPB Q8H-IV [facility] Last Admin: 03/18/17 01:39 Dose: 200 mls/hr Potassium Chloride/Dextrose/Sod Cl (D5-1/2ns+10 Meq Kcl -) 10 meq in 1,000 mls @ 100 mls/hr IV ASDIR [facility] Metoprolol Tartrate (Lopressor Injection -) 5 mg IVPUSH Q4H PRN PRN Reason: HYPERTENSION Morphine Sulfate (Morphine Injection -) 4 mg IVPUSH Q4H PRN PRN Reason: PAIN LEVEL 6-10 Mupirocin (Bactroban Ointment (For Decolonization) -) 1 applic NS BID [facility] Stop: 03/22/17 09:59 Last Admin: 03/17/17 21:32 Dose: Not Given Ondansetron HCl (Zofran Injection) 4 mg IVPUSH Q6H PRN PRN Reason: NAUSEA Ondansetron HCl (Zofran Injection) 4 mg IVPUSH Q6H PRN PRN Reason: NAUSEA AND/OR VOMITING Pantoprazole Sodium (Protonix Iv) 40 mg IVPUSH DAILY [facility] Last Admin: 03/17/17 09:56 Dose: 40 mg Promethazine HCl (Phenergan Injection -) 12.5 mg IVPUSH Q6H PRN PRN Reason: NAUSEA-FOR RESCUE AFTER 15 MIN - Objective Vital Signs: Vital Signs Temperature 97.5 F L 03/18/17 06:00 Pulse Rate 85 03/18/17 06:00 Respiratory Rate 18 03/18/17 06:00 Blood Pressure 149/95 03/18/17 06:00 O2 Sat by Pulse Oximetry (%) 96 03/17/17 21:00 Constitutional: Yes: Anxious, Mild Distress Eyes: Yes: Conjunctiva Clear, EOM Intact HENT: Yes: Atraumatic, Normocephalic, Other (NGT to low suction). No: Drooling , Epistaxis Neck: Yes: Supple, Trachea Midline Cardiovascular: Yes: Regular Rate and Rhythm, S1, S2. No: Bradycardia, Tachycardia, Bruit, JVD, Gallop Respiratory: Yes: Regular, CTA Bilaterally. No: Accessory Muscle Use, Rales, Rhonchi, SOB, Stridor, Tachypnea, Wheezes Gastrointestinal: Yes: Soft, Hypoactive Bowel Sounds, Tenderness (fox-op), Other (No flatus). No: Ascites, Tenderness, Rebound, Vomiting ...Rectal Exam: Yes: Deferred Genitourinary: No: Anuria, Bladder Distention, CVA Tenderness - Left, CVA Tenderness - Right Breast(s): Yes: WNL Musculoskeletal: No: Back Pain, Joint Stiffness, Joint Swelling Extremities: No: Amputation, Calf Tenderness, Cold, Cyanosis Edema: No Peripheral Pulses WNL: Yes Integumentary: Yes: WNL Wound/Incision: Yes: Clean/Dry, Well Approximated, Vitaly Intact, Dressing Dry and Intact ...Motor Strength: WNL Psychiatric: Yes: WNL Labs: CBC, BMP 03/17/17 05:15 03/17/17 05:15 INR, PTT INR 0.95 (0.82-1.09) 03/16/17 15:45 Problem List - Problems (1) HTN (hypertension) Assessment/Plan: Will change IV fluids to D5 1/2 NS with 10 K/L at 100 cc/hr Metoprolol tartrate IV PRN Code(s): I10 - ESSENTIAL (PRIMARY) HYPERTENSION Qualifiers: Hypertension type: unspecified Qualified Code(s): I10 - Essential (primary ) hypertension (2) Perforated abdominal viscus Assessment/Plan: status post exp lap and enterotomy. Surgical F/u IV Abx Code(s): [id number] - (3) Elevated LFTs Assessment/Plan: Folow up with LFT Code(s): R79.89 - OTHER SPECIFIED ABNORMAL FINDINGS OF BLOOD CHEMISTRY
[2017-03-18] MEDS ORDERED: MAGNESIUM 1GM/D5W - 1 GM/100 ML IVPB IVPB ONE (07:56)
--- NOTE | 2017-03-18 08:08 | EKG ---
Test Reason : Blood Pressure : / mmHG Vent. Rate : 077 BPM Atrial Rate : 077 BPM P-R Int : 194 ms QRS Dur : 090 ms QT Int : 376 ms P-R-T Axes : 030 008 001 degrees QTc Int : 425 ms NORMAL SINUS RHYTHM WITH SINUS ARRHYTHMIA NORMAL ECG WHEN COMPARED WITH ECG OF 18-NOV-2013 08:55, NO SIGNIFICANT CHANGE WAS FOUND Confirmed by MANDEEP JACOBSON MD ([id number]) on 03/18/2017 8:08:05 AM Referred By: Confirmed By:MANDEEP JACOBSON MD
[2017-03-18 08:40] LABS: BASO % 0.4 % (0-2.0); EOS % 0.3 % (0-4.5); HEMATOCRIT 34.2 % (35.4-49); HEMOGLOBIN 10.9 GM/dL (11.7-16.9); LYMPH % 4.5 % (8-40); MCH 28.4 pg (25.7-33.7); MCHC 31.8 g/dl (32.0-35.9); MEAN CELL VOLUME 89.3 fl (80-96); MEAN PLT VOLUME 10.4 fl (7.5-11.1); MONO % 7.9 % (3.8-10.2); NEUT % 86.9 % (42.8-82.8); PLATELET COUNT 205 K/MM3 (134-434); RBC 3.82 M/mm3 (4.00-5.60); RDW 13.8 % (11.9-15.9); WHITE BLOOD COUNT 13.9 K/mm3 (4.0-10.0)
[2017-03-18] MEDS: D5-1/2NS+10 MEQ KCL - 10 MEQ/1,000 ML INFUS.BAG IV SCH (09:14)
[2017-03-18] MEDS: ENOXAPARIN NA (PORCINE) 40 MG/0.4 ML DISP.SYRIN SQ SCH ×2 (09:15→11:00)
[2017-03-18] MEDS: PANTOPRAZOLE SODIUM 40 MG VIAL IVPUSH SCH ×2 (09:15→11:00)
[2017-03-18] MEDS: MUPIROCIN 2% TOPICAL OINTMENT FOR DECOLONIZATION NS SCH (09:15)
[2017-03-18] MEDS ORDERED: morphine CARPU-JECT 10 MG/1 ML DISP.SYRIN IVPUSH PRN (09:31)
[2017-03-18] MEDS ORDERED: ONDANSETRON 4 MG/2 ML VIAL IVPUSH PRN ×2 (09:31)
[2017-03-18] MEDS ORDERED: ACETAMINOPHEN 325 MG TABLET (FP) PO PRN (09:31)
[2017-03-18] MEDS ORDERED: PROMETHAZINE HCL 25 MG/1 ML VIAL IVPUSH PRN (09:31)
[2017-03-18] MEDS ORDERED: MUPIROCIN 2% TOPICAL OINTMENT FOR DECOLONIZATION NS SCH (10:00)
--- NOTE | 2017-03-18 10:52 | PN ---
Progress Note (short form) - Note Progress Note: surgery pt seen and examined. remains well on regular floor. ngt minimal. no flatus. no pain, voiding afebrile abd- soft, incision still with mild hematoma drainage, nt, nd Laboratory Tests 03/18/17 08:10 WBC 13.9 H 1) pod#2- cont npo, cont ngt, cont ivf 2) perforated small bowel- cont zosyn, expect ileus to last several days 3) hypomagnesemia- replaced, labs p 4) elevated lfts- ? sepsis, labs pending 5) prophylaxis- lovenox, protonix, oob, spirometer,
[2017-03-18] MEDS: SODIUM CHLORIDE 1,000 ML IV SCH (11:01)
[2017-03-18 11:07] LABS: ALBUMIN 2.7 g/dl (3.4-5.0); ALK PHOS 82 U/L (45-117); ANION GAP 12 (8-16); BILIRUBIN,TOTAL 1.4 mg/dL (0.2-1.0); BLOOD UREA NITROGEN 18 mg/dL (7-18); CHLORIDE 105 mmol/L (98-107); CO2 24 mmol/L (21-32); CREATININE 1.2 mg/dL (0.7-1.3); GLUCOSE,RANDOM 100 mg/dL (74-106); MAGNESIUM 2.1 mg/dL (1.8-2.4); PHOSPHOROUS 2.4 mg/dL (2.5-4.9); SGOT/AST 52 U/L (15-37); SGPT/ALT 102 U/L (12-78); SODIUM 141 mmol/L (136-145); TOT PROT 5.9 g/dl (6.4-8.2)
--- NOTE | 2017-03-18 13:53 | PATH ---
Surgical Pathology Report Patient Name: HIPOLITO PEREZ Med. Rec. #: [id number] /Age/Gender: 1935 (Age: 81) / M Account: [id number] Location: [address] [place] [address]/[facility] Taken: 03/16/2017 Received: 03/17/2017 Reported: 03/18/2017 Physicians: Laura Crowe M.D. Specimen(s) Received SMALL BOWEL,SEGMENTAL RESECTION OTHER THAN TUMOR Clinical History Abdominal pain, small bowel obstruction Final Diagnosis SMALL BOWEL, SEGMENTAL RESECTION:SEGMENT OF SMALL BOWEL WITH VASCULAR CONGESTION, PATCHY ISCHEMIC CHANGES AND ASSOCIATED PERFORATION. ACUTE SEROSITIS AND SEROSAL ADHESIONS. SURGICAL MARGINS ARE VIABLE. Electronically Signed Stefanie Lassiter M.D. Gross Description Received in formalin labeled "portion of perforated small bowel," is an 18 cm in length portion of small bowel with two open mucosal margins and abundant attached adipose tissue. The bowel serosa is olson-llanos and focally adhesed to itself. The mucosa is olson-red with normal folds. No mucosal masses are identified. There is a focal longitudinal staple line in the area of the serosal adhesions. No definite perforation site is identified. Lead Welder sections are submitted in 7 cassettes as follows: [id number] mucosal margins; 0-6-[id number] from staple line and serosal adhesions; 7-additional employer relations representative bowel. /03/17/2017 saudi03/17/2017
[2017-03-18] MEDS ORDERED: SODIUM PHOSPHATE - 27 MM in DEXTROSE 5%-WATER - 250 ML IVPB ONE (14:00)
[2017-03-18] MEDS ORDERED: CHLORHEXIDINE GLUCONATE 4% CLEANSER FOR DECOLONIZATION TP SCH (22:00)
[2017-03-19] MEDS ORDERED: PT OWN MED DRAWER 7, Y5N ONE ×3 (01:29→16:20)
[2017-03-19] MEDS: PIPERACILLIN/TAZOB 4.5 GM 4.5 GM in DEXTROSE 5%-WATER - 100 ML IVPB SCH ×3 (02:24→17:55)
[2017-03-19] MEDS: D5-1/2NS+10 MEQ KCL - 10 MEQ/1,000 ML INFUS.BAG IV SCH ×3 (07:40→15:55)
[2017-03-19 08:27] LABS: BASO % 0.5 % (0-2.0); EOS % 0.9 % (0-4.5); HEMATOCRIT 36.3 % (35.4-49); HEMOGLOBIN 11.7 GM/dL (11.7-16.9); LYMPH % 6.5 % (8-40); MCH 28.6 pg (25.7-33.7); MCHC 32.1 g/dl (32.0-35.9); MEAN CELL VOLUME 89.3 fl (80-96); MEAN PLT VOLUME 10.8 fl (7.5-11.1); MONO % 9.5 % (3.8-10.2); NEUT % 82.6 % (42.8-82.8); PLATELET COUNT 224 K/MM3 (134-434); RBC 4.07 M/mm3 (4.00-5.60); RDW 13.6 % (11.9-15.9); WHITE BLOOD COUNT 13.7 K/mm3 (4.0-10.0)
[2017-03-19 08:39] LABS: CHLORIDE 103 mmol/L (98-107); POTASSIUM 3.7 mmol/L (3.5-5.1); SODIUM 141 mmol/L (136-145)
--- NOTE | 2017-03-19 08:42 | PN ---
Progress Note (short form) - Note Progress Note: Very uncomfortable beacause of acute urinary retention Concerned about no BM. Anxiious. Refusing IVF. Last Vital Signs Temp Pulse Resp BP Pulse Ox 98.8 F 86 18 142/86 96 03/19/17 06:00 03/19/17 06:00 03/19/17 06:00 03/19/17 06:00 03/18/17 21:00 Awake, alert. No JVD Neck supple No JVD Lungs Clear/ Heart s1s2 regular Abdomen -low abdominal distention. Suprapubic fulless. Laboratory Results - last 24 hr 03/18/17 03/18/17 08:10 08:10 WBC 13.9 H RBC 3.82 L Hgb 10.9 L Hct 34.2 L MCV 89.3 MCH 28.4 MCHC 31.8 L RDW 13.8 Plt Count 205 MPV 10.4 Neutrophils % 86.9 H Lymphocytes % 4.5 L Monocytes % 7.9 Eosinophils % 0.3 D Basophils % 0.4 D Sodium 141 Potassium 4.0 Chloride 105 Carbon Dioxide 24 Anion Gap 12 BUN 18 Creatinine 1.2 Creat Clearance w eGFR 57.96 Random Glucose 100 D Calcium 8.0 L Phosphorus 2.4 L D Magnesium 2.1 D Total Bilirubin 1.4 H D AST 52 H D ALT 102 H D Alkaline Phosphatase 82 Total Protein 5.9 L Albumin 2.7 L Current Active Problems Problem Status Onset Elevated LFTs-improving Acute HTN (hypertension) Acute urinary retention. Acute Perforated abdominal viscus Acute Plan Smith cath consult IVF Flomax PO. IV Abx Problem List - Problems (1) HTN (hypertension) Code(s): I10 - ESSENTIAL (PRIMARY) HYPERTENSION Qualifiers: Hypertension type: unspecified Qualified Code(s): I10 - Essential (primary ) hypertension (2) Perforated abdominal viscus Code(s): [id number] - (3) Elevated LFTs Code(s): R79.89 - OTHER SPECIFIED ABNORMAL FINDINGS OF BLOOD CHEMISTRY
[2017-03-19 08:46] LABS: ALK PHOS 75 U/L (45-117); ANION GAP 15 (8-16); BILIRUBIN,TOTAL 1.8 mg/dL (0.2-1.0); BLOOD UREA NITROGEN 14 mg/dL (7-18); CALCIUM 8.4 mg/dL (8.5-10.1); CO2 23 mmol/L (21-32); GLUCOSE,RANDOM 98 mg/dL (74-106); MAGNESIUM 2.2 mg/dL (1.8-2.4); PHOSPHOROUS 2.6 mg/dL (2.5-4.9); SGOT/AST 35 U/L (15-37); SGPT/ALT 78 U/L (12-78); TOT PROT 6.5 g/dl (6.4-8.2)
[2017-03-19] MEDS: ENOXAPARIN NA (PORCINE) 40 MG/0.4 ML DISP.SYRIN SQ SCH (09:41)
[2017-03-19] MEDS: PANTOPRAZOLE SODIUM 40 MG VIAL IVPUSH SCH (09:42)
[2017-03-19] MEDS ORDERED: TAMSULOSIN HCL 0.4 MG CAP.ER.24H (FP) PO ONE (10:00)
[2017-03-19] MEDS ORDERED: GLYCERIN 1 RECTAL SUPPOSITORY, ADULT RC PRN (10:13)
--- NOTE | 2017-03-19 11:06 | PN ---
Progress Note (short form) - Note Progress Note: surgery pt seen and examined. unable to void this am and had retention requiring catheterization. pt now well without pain. no flatus. removed his ngt last night and is refusing replacement. afebrile abd- soft, incision clean, ecchymosis, nt, nd Laboratory Tests 03/19/17 07:15 WBC 13.7 H 1) pod#3- cont npo, refusing ngt (risk of leak), cont ivf 2) perforated small bowel- cont zosyn, expect ileus to last a few more days, wbc should slowly improve. pathology is benign 3) hypomagnesemia- resolved 4) elevated lfts- resolved 5) prophylaxis- lovenox, protonix, oob, spirometer,
[2017-03-20] MEDS ORDERED: PT OWN MED DRAWER 7, Y5N ONE ×3 (01:24→16:50)
[2017-03-20] MEDS: D5-1/2NS+10 MEQ KCL - 10 MEQ/1,000 ML INFUS.BAG IV SCH ×2 (02:34→07:44)
[2017-03-20] MEDS: PIPERACILLIN/TAZOB 4.5 GM 4.5 GM in DEXTROSE 5%-WATER - 100 ML IVPB SCH ×3 (02:35→18:12)
[2017-03-20 08:09] LABS: BASO % 0.7 % (0-2.0); EOS % 5.7 % (0-4.5); HEMATOCRIT 31.2 % (35.4-49); HEMOGLOBIN 10.3 GM/dL (11.7-16.9); MCH 29.2 pg (25.7-33.7); MEAN CELL VOLUME 88.6 fl (80-96); MEAN PLT VOLUME 10.3 fl (7.5-11.1); MONO % 11.9 % (3.8-10.2); NEUT % 73.7 % (42.8-82.8); PLATELET COUNT 216 K/MM3 (134-434); RBC 3.52 M/mm3 (4.00-5.60); RDW 13.2 % (11.9-15.9); WHITE BLOOD COUNT 8.8 K/mm3 (4.0-10.0)
[2017-03-20 08:40] LABS: CHLORIDE 104 mmol/L (98-107); POTASSIUM 3.2 mmol/L (3.5-5.1); SODIUM 142 mmol/L (136-145)
[2017-03-20 08:58] LABS: ANION GAP 11 (8-16); BLOOD UREA NITROGEN 12 mg/dL (7-18); CALCIUM 8.2 mg/dL (8.5-10.1); CO2 27 mmol/L (21-32); CREATININE 1.1 mg/dL (0.7-1.3); GLUCOSE,RANDOM 117 mg/dL (74-106); MAGNESIUM 2.1 mg/dL (1.8-2.4); PHOSPHOROUS 2.1 mg/dL (2.5-4.9)
--- NOTE | 2017-03-20 09:30 | PN ---
Progress Note (short form) - Note Progress Note: Feels better after Smith, denies flatus. Smith-500 cc retention yesterday, today drains clear urine, Flomax started. Vital Signs Temp 97.8 F 03/20/17 06:00 Pulse 78 03/20/17 06:00 Resp 20 03/20/17 06:00 BP 126/77 03/20/17 06:00 Pulse Ox 95 03/19/17 21:00 Intake & Output 03/19/17 03/19/17 03/20/17 11:59 23:59 11:59 Intake Total 200 1400 Output Total 550 1600 1100 Balance -550 -1400 300 Intake: IV 1100 D5-1/2NS+10 MEQ KCL - 10 1100 meq In 1,000 ml @ 100 mls /hr IV ASDIR TAWNY Rx#: [id number] IVPB 200 300 Oral 0 0 Output: Urine 550 1600 1100 Void 550 1600 1100 Other: Voiding Method Indwelling Catheter Indwelling Catheter Indwelling Catheter Bowel Movement No No Awake, alert, c/o insomnia. Neck-no JVD Lungs clear Heart S1s2 regular S, abomen-active BS, mild distention, echimoses dressing/sole clean. Laboratory Results - last 24 hr 03/20/17 03/20/17 06:40 06:40 WBC 8.8 D RBC 3.52 L Hgb 10.3 L D Hct 31.2 L MCV 88.6 MCH 29.2 MCHC 33.0 RDW 13.2 Plt Count 216 MPV 10.3 Neutrophils % 73.7 Lymphocytes % 8.0 D Monocytes % 11.9 H Eosinophils % 5.7 H D Basophils % 0.7 Sodium 142 Potassium 3.2 L Chloride 104 Carbon Dioxide 27 Anion Gap 11 BUN 12 Creatinine 1.1 Random Glucose 117 H Calcium 8.2 L Phosphorus 2.1 L Magnesium 2.1 Current Medications Generic Name Dose Route Start Last Admin Trade Name Freq PRN Reason Stop Dose Admin Acetaminophen 650 mg 03/18/17 09:31 Tylenol - PO Q4H PRN FEVER Enoxaparin Sodium 40 mg 03/18/17 10:00 03/19/17 09:41 Lovenox - SQ 40 mg DAILY TAWNY Administration Fentanyl 25 mcg 03/18/17 09:31 Sublimaze Injection - IVPUSH [id number] PRN PAIN-PACU ORDER X 4 DOSES ONLY Glycerin 1 each 03/19/17 10:13 Glycerin Suppository Adult - RC DAILY PRN CONSTIPATION Potassium Chloride/Dextrose/Sod Cl 10 meq in 1,000 mls @ 100 mls/hr 03/18/17 07:45 03/20/17 07:44 D5-1/2ns+10 Meq Kcl - IV Not Given ASDIR TAWNY Piperacillin Sod/Tazobactam 100 mls @ 200 mls/hr 03/18/17 10:00 03/20/17 02: 35 Sod 4.5 gm/ Dextrose IVPB 200 mls/hr Q8H-IV TAWNY Administration Metoprolol Tartrate 5 mg 03/18/17 07:46 Lopressor Injection - IVPUSH Q4H PRN HYPERTENSION Ondansetron HCl 4 mg 03/18/17 09:31 Zofran Injection IVPUSH Q6H PRN NAUSEA Ondansetron HCl 4 mg 03/18/17 09:31 Zofran Injection IVPUSH Q6H PRN NAUSEA AND/OR VOMITING Pantoprazole Sodium 40 mg 03/18/17 10:00 03/19/17 09:42 Protonix Iv IVPUSH 40 mg DAILY TAWNY Administration Promethazine HCl 12.5 mg 03/18/17 09:31 Phenergan Injection - IVPUSH Q6H PRN NAUSEA-FOR RESCUE AFTER 15 MIN Tamsulosin HCl 0.4 mg 03/20/17 08:30 Flomax - PO DAILY@0830 TAWNY Zolpidem Tartrate 5 mg 03/20/17 09:19 Ambien - PO HS PRN INSOMNIA Current Active Problems Problem Status Onset Elevated LFTs Hypokalemia, hypophosphatemia. Acute HTN (hypertension) Acute Perforated abdominal viscus BPH, acute urinary retention. TAAA Acute Plan continue Flomax, Smith, consult Re-place K- IV ABX Surgical f/u re beginning clear fluids CMP in AM Problem List - Problems (1) HTN (hypertension) Code(s): I10 - ESSENTIAL (PRIMARY) HYPERTENSION Qualifiers: Hypertension type: unspecified Qualified Code(s): I10 - Essential (primary ) hypertension (2) Perforated abdominal viscus Code(s): [id number] - (3) Elevated LFTs Code(s): R79.89 - OTHER SPECIFIED ABNORMAL FINDINGS OF BLOOD CHEMISTRY
[2017-03-20] MEDS: TAMSULOSIN HCL 0.4 MG CAP.ER.24H (FP) PO SCH (10:51)
[2017-03-20] MEDS: ENOXAPARIN NA (PORCINE) 40 MG/0.4 ML DISP.SYRIN SQ SCH (10:52)
[2017-03-20] MEDS: D5-1/2NS+20 MEQ KCL - 20 MEQ/1,000 ML INFUS.BAG IV SCH (10:53)
[2017-03-20] MEDS: PANTOPRAZOLE SODIUM 40 MG VIAL IVPUSH SCH (10:55)
[2017-03-20] MEDS ORDERED: POTASSIUM PHOSPHATE 30 MM in DEXTROSE 5%-WATER - 250 ML IVPB ONE (11:30)
[2017-03-20] MEDS ORDERED: POTASSIUM PHOSPHATE 30 MM in SODIUM CHLORIDE 500 ML IVPB ONE (11:37)
--- NOTE | 2017-03-20 13:50 | PN ---
Progress Note (short form) - Note Progress Note: surgery pt seen and examined. now with flatus. feels much better. oob. no bm afebrile abd- soft, incision clean, ecchymosis, nt, nd Laboratory Tests 03/20/17 03/20/17 06:40 06:40 WBC 8.8 D Potassium 3.2 L 1) pod#4- cont npo, cont ivf 2) perforated small bowel- cont zosyn, expect ileus to last a few more days, wbc now normal. pathology is benign 3) hypomagnesemia- resolved 4) elevated lfts- resolved 5) prophylaxis- lovenox, protonix, oob, spirometer, 6) hypokalemia- will replace
[2017-03-20] MEDS ORDERED: ZOLPIDEM TARTRATE 5 MG TABLET PO PRN (22:00)
[2017-03-21] MEDS ORDERED: PT OWN MED DRAWER 7, Y5N ONE ×3 (01:46→17:10)
[2017-03-21] MEDS: PIPERACILLIN/TAZOB 4.5 GM 4.5 GM in DEXTROSE 5%-WATER - 100 ML IVPB SCH ×3 (02:17→17:25)
--- NOTE | 2017-03-21 07:21 | PN ---
Progress Note (short form) - Note Progress Note: surgery pt seen and examined. flatus and bm afebrile abd- soft, incision clean, ecchymosis, nt, nd labs pending 1) pod#5- full liquids, stop ivf if tolerates. poss d/c tomorrow on liquids for 1 week if tolerates 2) perforated small bowel- cont zosyn, can switch to augmentin tomorrow and consider discharge 3) hypomagnesemia- resolved, labs pending 4) elevated lfts- resolved 5) prophylaxis- lovenox, protonix, oob, spirometer, 6) hypokalemia- replaced, labs pending
--- NOTE | 2017-03-21 09:07 | CON.GU ---
Consult - History of Present Illness History of Present Illness: 81 yo male with h/o BPH, admitted with perforated viscus, underwent exploratory lap and repair. Now with urinary retention. Flomax started yesterday, clear liquids started today. 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 No: Renal Failure, Renal Inusuff, Cancer, Hematuria, Hemodialysis, Neurogenic Bladder, Renal Calculi, UTI Musculoskeletal: Yes: Osteoarthritis - Past Surgical History Past Surgical History: Yes: Cholecystectomy, Hernia Repair (Recent RIH, SBR) - Alcohol/Substance Use Hx Alcohol Use: Yes (wine) - Smoking History Smoking history: Never smoked Have you smoked in the past 12 months: No - Social History ADL: Independent History of Recent Travel: No Home Medications - Allergies Allergies/Adverse Reactions: Allergies Allergy/AdvReac Type Severity Reaction Status Date / Time No Known Allergies Allergy Verified 03/16/17 12:42 - Home Medications Home Medications: Ambulatory Orders Omeprazole [Prilosec (RX)] 20 mg PO DAILY 10/27/13 Review of Systems - Review of Systems Genitourinary: reports: Other (urine clear) Physical Exam- Vital Signs: Vital Signs Temperature 98.6 F 03/20/17 18:00 Pulse Rate 75 03/20/17 18:00 Respiratory Rate 18 03/20/17 18:00 Blood Pressure 125/72 03/20/17 18:00 O2 Sat by Pulse Oximetry (%) 95 03/20/17 21:00 Renal/: Yes: Gillis Present Labs: CBC, BMP 03/20/17 06:40 03/20/17 06:40 Problem List - Problems (1) Urinary retention Assessment/Plan: agree with Flomax, will d/.c gillis this am after Flomax is given since pt is ambulating Code(s): R33.9 - RETENTION OF URINE, UNSPECIFIED
[2017-03-21] MEDS: ENOXAPARIN NA (PORCINE) 40 MG/0.4 ML DISP.SYRIN SQ SCH (09:13)
[2017-03-21] MEDS: TAMSULOSIN HCL 0.4 MG CAP.ER.24H (FP) PO SCH (09:13)
[2017-03-21] MEDS: PANTOPRAZOLE SODIUM 40 MG VIAL IVPUSH SCH (09:13)
[2017-03-21] MEDS: D5-1/2NS+20 MEQ KCL - 20 MEQ/1,000 ML INFUS.BAG IV SCH (11:00)
--- NOTE | 2017-03-21 16:15 | PN ---
Progress Note (short form) - Note Progress Note: fEELS BETTER, had bm, STARTED po LIQUIDS. Roque IS OUT, dR Leonard CONSULT APPRECIATED. Vital Signs Temp 98.5 F 03/21/17 15:35 Pulse 87 03/21/17 15:35 Resp 20 03/21/17 15:35 BP 161/81 03/21/17 15:35 Pulse Ox 95 03/21/17 09:27 Intake & Output 03/20/17 03/21/17 03/21/17 23:59 11:59 23:59 Intake Total 1690 1660 480 Output Total 1000 550 Balance 690 1110 480 Weight 171 lb 12.8 oz Intake: IV 500 1100 D5-1/2NS+10 MEQ KCL - 10 500 meq In 1,000 ml @ 100 mls /hr IV ASDIR TAWNY Rx#: [id number] D5-1/2NS+20 MEQ KCL - 20 1100 meq In 1,000 ml @ 100 mls /hr IV ASDIR TAWNY Rx#: [id number] IVPB 600 100 Oral 590 460 480 Output: Urine 1000 550 Void 1000 550 Other: Voiding Method Indwelling Catheter Indwelling Catheter Urinal Bowel Movement No No No Weight Measurement Method Standing Scale lUNGS ARE cLEAR hEART s1s2 REGULAR aBDOMEN SOFT, MILDLY DISTENDED, ACTIVE bs eCCHYMOSES, YOANA INTACT. nO cce a&o X3, AMBULATES WELL Current Active Problems Problem Status Onset Elevated LFTs Acute HTN (hypertension) Acute Perforated abdominal viscus Acute Urinary retention Acute pLAN cONTINUE iv abx NEXT 48 HRS. aDVANCE DIET PER SX. cONTINUE fLOMAX. Problem List - Problems (1) HTN (hypertension) Code(s): I10 - ESSENTIAL (PRIMARY) HYPERTENSION Qualifiers: Hypertension type: unspecified Qualified Code(s): I10 - Essential (primary ) hypertension (2) Perforated abdominal viscus Code(s): [id number] - (3) Elevated LFTs Code(s): R79.89 - OTHER SPECIFIED ABNORMAL FINDINGS OF BLOOD CHEMISTRY
[2017-03-21] MEDS ORDERED: D5-1/2NS+20 MEQ KCL - 20 MEQ/1,000 ML INFUS.BAG IV SCH (16:17)
[2017-03-22] MEDS: PIPERACILLIN/TAZOB 4.5 GM 4.5 GM in DEXTROSE 5%-WATER - 100 ML IVPB SCH ×2 (02:58→09:55)
[2017-03-22] MEDS: TAMSULOSIN HCL 0.4 MG CAP.ER.24H (FP) PO SCH (09:00)
[2017-03-22] MEDS: PANTOPRAZOLE SODIUM 40 MG VIAL IVPUSH SCH (09:55)
[2017-03-22] MEDS: ENOXAPARIN NA (PORCINE) 40 MG/0.4 ML DISP.SYRIN SQ SCH (09:56)
[2017-03-22 10:13] LABS: BASO % 0.8 % (0-2.0); EOS % 4.3 % (0-4.5); HEMATOCRIT 32.5 % (35.4-49); HEMOGLOBIN 10.6 GM/dL (11.7-16.9); LYMPH % 9.4 % (8-40); MCHC 32.5 g/dl (32.0-35.9); MEAN CELL VOLUME 89.1 fl (80-96); MEAN PLT VOLUME 9.6 fl (7.5-11.1); NEUT % 76.5 % (42.8-82.8); PLATELET COUNT 242 K/MM3 (134-434); RBC 3.65 M/mm3 (4.00-5.60); RDW 13.3 % (11.9-15.9); WHITE BLOOD COUNT 9.7 K/mm3 (4.0-10.0)
[2017-03-22 10:41] LABS: ALBUMIN 2.5 g/dl (3.4-5.0); ALK PHOS 52 U/L (45-117); ANION GAP 8 (8-16); BILIRUBIN,TOTAL 0.6 mg/dL (0.2-1.0); BLOOD UREA NITROGEN 8 mg/dL (7-18); CALCIUM 7.7 mg/dL (8.5-10.1); CHLORIDE 106 mmol/L (98-107); CO2 25 mmol/L (21-32); CREATININE 1.1 mg/dL (0.7-1.3); GLUCOSE,RANDOM 139 mg/dL (74-106); MAGNESIUM 1.7 mg/dL (1.8-2.4); POTASSIUM 3.8 mmol/L (3.5-5.1); SGOT/AST 17 U/L (15-37); SGPT/ALT 37 U/L (12-78); SODIUM 139 mmol/L (136-145); TOT PROT 5.5 g/dl (6.4-8.2)
--- NOTE | 2017-03-22 11:58 | PN ---
Progress Note (short form) - Note Progress Note: Awake, alert, NAD, urinates well, tolerates liquids. Last Vital Signs Temp Pulse Resp BP Pulse Ox 97.7 F 78 18 137/81 97 03/22/17 06:00 03/22/17 06:00 03/22/17 06:00 03/22/17 06:00 03/21/17 21:00 Neck- no JVD, No bruits. Lungs are Clear Heart S1S2 regular Abdomen-active BS, ND, soft, sole intact. Ext-no CCE Laboratory Results - last 24 hr 03/22/17 03/22/17 09:30 09:30 WBC 9.7 RBC 3.65 L Hgb 10.6 L Hct 32.5 L MCV 89.1 MCH 29.0 MCHC 32.5 RDW 13.3 Plt Count 242 MPV 9.6 Neutrophils % 76.5 Lymphocytes % 9.4 Monocytes % 9.0 Eosinophils % 4.3 Basophils % 0.8 Sodium 139 Potassium 3.8 Chloride 106 Carbon Dioxide 25 Anion Gap 8 BUN 8 D Creatinine 1.1 Creat Clearance w eGFR > 60 Random Glucose 139 H Calcium 7.7 L Magnesium 1.7 L Total Bilirubin 0.6 D AST 17 D ALT 37 D Alkaline Phosphatase 52 D Total Protein 5.5 L Albumin 2.5 L Current Medications Generic Name Dose Route Start Last Admin Trade Name Derekq PRN Reason Stop Dose Admin Acetaminophen 650 mg 03/18/17 09:31 Tylenol - PO Q4H PRN FEVER Enoxaparin Sodium 40 mg 03/18/17 10:00 03/22/17 09:56 Lovenox - SQ 40 mg DAILY TAWNY Administration Glycerin 1 each 03/19/17 10:13 Glycerin Suppository Adult - RC DAILY PRN CONSTIPATION Piperacillin Sod/Tazobactam 100 mls @ 200 mls/hr 03/18/17 10:00 03/22/17 09: 55 Sod 4.5 gm/ Dextrose IVPB 200 mls/hr Q8H-IV TAWNY Administration Magnesium Sulfate/Dextrose 2 200 mls @ 100 mls/hr 03/22/17 11:50 gm/ Miscellaneous IVPB 03/22/17 13:49 ONCE ONE Ondansetron HCl 4 mg 03/18/17 09:31 Zofran Injection IVPUSH Q6H PRN NAUSEA Pantoprazole Sodium 20 mg 03/23/17 10:00 Protonix - PO DAILY TAWNY Tamsulosin HCl 0.4 mg 03/20/17 08:30 03/22/17 09:00 Flomax - PO 0.4 mg DAILY@0830 TAWNY Administration Zolpidem Tartrate 5 mg 03/20/17 22:00 Ambien - PO HS PRN INSOMNIA Current Active Problems Problem Status Onset Elevated LFTs Acute HTN (hypertension) Acute Perforated abdominal viscus Acute Urinary retention Hypomagnesemia- Acute IV to heplock. Replace Mg. Advance Diet as per surgeon. IV Zosyn for the bnext 24 hrs and change to PO and D/C Problem List - Problems (1) HTN (hypertension) Code(s): I10 - ESSENTIAL (PRIMARY) HYPERTENSION Qualifiers: Hypertension type: unspecified Qualified Code(s): I10 - Essential (primary ) hypertension (2) Perforated abdominal viscus Code(s): [id number] - (3) Elevated LFTs Code(s): R79.89 - OTHER SPECIFIED ABNORMAL FINDINGS OF BLOOD CHEMISTRY
[2017-03-22] MEDS ORDERED: MAGNESIUM SULFATE IN WATER 2 GM/50 ML IVPB IVPB ONE (12:30)
--- NOTE | 2017-03-22 15:41 | PN ---
Progress Note (short form) - Note Progress Note: surgery pt seen and examined. flatus and bm. tolerates liquids afebrile abd- soft, incision clean, nt, nd Laboratory Tests 03/22/17 03/22/17 09:30 09:30 WBC 9.7 Magnesium 1.7 L 1) pod#6- full liquids, surgically stable for d/c on liquids for 1 week. can advance to regular diet at home on mar 28. 2) perforated small bowel- suggest augmentin for 5 days 3) hypomagnesemia- will replace again 4) elevated lfts- resolved 5) prophylaxis- lovenox, protonix, oob, spirometer, 6) hypokalemia- resolved
[2017-03-22] MEDS: AMOX TR/POT CLAV 875MG/125MG TABLETS (FP) PO SCH (17:58)
[2017-03-23] MEDS: TAMSULOSIN HCL 0.4 MG CAP.ER.24H (FP) PO SCH (08:10)
[2017-03-23] MEDS: AMOX TR/POT CLAV 875MG/125MG TABLETS (FP) PO SCH (08:10)
[2017-03-23 08:12] VITALS: BP 137/69; PULSE 74; TEMP 98.1
--- NOTE | 2017-03-23 08:32 | PN ---
Progress Note (short form) - Note Progress Note: Tolerates Po, +Flatus. Questions answered. Dr Webb f/u appreciated. Vital Signs Temp 98.1 F 03/23/17 08:11 Pulse 74 03/23/17 08:11 Resp 18 03/23/17 08:11 BP 137/69 03/23/17 08:11 Pulse Ox 97 03/22/17 21:00 Intake & Output 03/22/17 03/22/17 03/23/17 11:59 23:59 11:59 Intake Total 5050 1320 1150 Balance 5050 1320 1150 Weight 172 lb 0.8 oz Intake: IV 3100 D5-1/2NS+20 MEQ KCL - 20 3100 meq In 1,000 ml @ 100 mls /hr IV ASDIR TAWNY Rx#: [id number] IVPB 500 100 Oral 1450 1320 1050 Other: Voiding Method Urinal Toilet Toilet # Unmeasured Voids Void 2 4 2 Bowel Movement No Yes Yes # Bowel Movements 1 Weight Measurement Method Standing Scale Abdomen soft, active BS sole intact Ambulates in the room. No bladder distention. Laboratory Results - last 24 hr 03/22/17 03/22/17 09:30 09:30 WBC 9.7 RBC 3.65 L Hgb 10.6 L Hct 32.5 L MCV 89.1 MCH 29.0 MCHC 32.5 RDW 13.3 Plt Count 242 MPV 9.6 Neutrophils % 76.5 Lymphocytes % 9.4 Monocytes % 9.0 Eosinophils % 4.3 Basophils % 0.8 Sodium 139 Potassium 3.8 Chloride 106 Carbon Dioxide 25 Anion Gap 8 BUN 8 D Creatinine 1.1 Creat Clearance w eGFR > 60 Random Glucose 139 H Calcium 7.7 L Magnesium 1.7 L Total Bilirubin 0.6 D AST 17 D ALT 37 D Alkaline Phosphatase 52 D Total Protein 5.5 L Albumin 2.5 L Plan D/c Home F/u with SX. F/u at the office this week Augmentin PO x5 days Problem List - Problems (1) HTN (hypertension) Code(s): I10 - ESSENTIAL (PRIMARY) HYPERTENSION Qualifiers: Hypertension type: unspecified Qualified Code(s): I10 - Essential (primary ) hypertension (2) Perforated abdominal viscus Code(s): [id number] - (3) Elevated LFTs Code(s): R79.89 - OTHER SPECIFIED ABNORMAL FINDINGS OF BLOOD CHEMISTRY
--- NOTE | 2017-03-23 08:35 | DS ---
Physical Examination Vital Signs: Vital Signs Temperature 98.1 F 03/23/17 08:11 Pulse Rate 74 03/23/17 08:11 Respiratory Rate 18 03/23/17 08:11 Blood Pressure 137/69 03/23/17 08:11 O2 Sat by Pulse Oximetry (%) 97 03/22/17 21:00 Constitutional: Yes: No Distress, Anxious Eyes: Yes: Conjunctiva Clear, EOM Intact HENT: Yes: Atraumatic, Normocephalic Neck: Yes: Supple, Trachea Midline. No: Decreased ROM, Lymphadenopathy, Tenderness Cardiovascular: Yes: Regular Rate and Rhythm, S1, S2. No: Bradycardia, Tachycardia, Pulse Irregular, JVD Respiratory: Yes: Regular, CTA Bilaterally Gastrointestinal: Yes: Normal Bowel Sounds, Soft, Tenderness (perioperative area ). No: Ascites ...Rectal Exam: Yes: Deferred Renal/: No: Anuria, Bladder Distention Breast(s): Yes: WNL Musculoskeletal: No: Back Pain, Joint Stiffness Extremities: No: Amputation, Calf Tenderness Edema: No Peripheral Pulses WNL: Yes Integumentary: Yes: WNL Wound/Incision: Yes: Clean/Dry, Well Approximated, Vitaly Intact Neurological: Yes: Alert, Oriented, Cran Nerves II-XII Intact. No: Aphasia, Confusion, Unsteady Gait ...Motor Strength: WNL Psychiatric: Yes: WNL Labs: CBC, BMP 03/22/17 09:30 03/22/17 09:30 Discharge Summary Reason For Visit: Perforated viscus Current Active Problems Elevated LFTs (Acute) HTN (hypertension) (Acute) Perforated abdominal viscus (Acute) Urinary retention (Acute) - Instructions Referrals: Jose E Berrios MD [Primary Care Provider] - Disposition: HOME - Home Medications Comprehensive Discharge Medication List: Ambulatory Orders Omeprazole [Prilosec (RX)] 20 mg PO DAILY 10/27/13
[2017-03-23] MEDS: ENOXAPARIN NA (PORCINE) 40 MG/0.4 ML DISP.SYRIN SQ SCH (09:04)
[2017-03-23] MEDS ORDERED: PATIENT'S OWN MEDICATION (NON-FORMULARY) (Omeprazole [Prilosec (Rx)] 20 MG) PO SCH (10:00)
[2017-03-23] MEDS ORDERED: PANTOPRAZOLE 20 MG TABLET (FP) PO SCH (10:00)
== END 2017-03-23 09:33 | disposition home or self-care (01) | DRG 329 ==
LOC: JER 12:40 → JERBED 17:13 → JICU 03-17 02:39 → J5S 03-17 17:12
PROVIDERS: ADMIT Internal Medicine; ATTEND Internal Medicine
PROC: 0DNW0ZZ Release Peritoneum, Open Approach (ICD-10-PCS; 2017-03-16)
PROC: 0DT80ZZ Resection of Small Intestine, Open Approach (ICD-10-PCS; principal; 2017-03-16 20:30)
DX: K63.1 Perforation of intestine (nontraumatic) (principal); K65.9 Peritonitis, unspecified; I47.1 Supraventricular tachycardia; E83.42 Hypomagnesemia; E87.6 Hypokalemia; R33.9 Retention of urine, unspecified; K66.0 Peritoneal adhesions (postprocedural) (postinfection); I10 Essential (primary) hypertension
CPT/HCPCS: 36415; 74178-TC; 80048; 80053; 82550; 83605; 83690; 83735; 84100; 84484; 85025; 85610; 85730; 86850; 86900; 86901; 87040; 93005; 93010; 94760; 97116-GP; 97161-GP; 99283-25

== ENCOUNTER 2017-06-24 15:03 | Inpatient (IN) | payer OTHER, BC ==
--- NOTE | 2017-06-24 15:09 | PDOC ---
Rapid Medical Evaluation Time Seen by Provider: 06/24/17 15:08 Medical Evaluation: Allergies Allergy/AdvReac Type Severity Reaction Status Date / Time No Known Allergies Allergy Verified 03/16/17 12:42 06/24/17 15:09 82 year old male with SBO and perforated viscus 02/2017 (surgeon: Dr. Webb), thoracic aortic aneurysm, mild-mod AI, SVT inguinal hernia repair, and cholecystectomy presenting with generalized abdominal pain and nausea since morning. Alert, oriented, mild distress secondary to pain. Diffuse abdominal tenderness without peritoneal signs. V/s unremarkable. Plans: -EKG -Labs including CBC, CMP, PT/INR, T&S, lipase -Zofran 4mg IVPB -CTAP PO/IV contrast -To main ED for further eval
[2017-06-24] MEDS ORDERED: ONDANSETRON 4 MG/2 ML VIAL IVPUSH ONE (15:13)
--- NOTE | 2017-06-24 16:03 | PDOC ---
History of Present Illness - General Chief Complaint: Pain, Acute Stated Complaint: ABD PAIN Time Seen by Provider: 06/24/17 15:08 - History of Present Illness Initial Comments: 06/24/17 15:50 82 year old male with a PMH of SBO presents to our ED c/o acute onset of abdominal pain that started this morning. Pain is sharp, constant, 10/10, without any radiation. Endorses one episode of self-induced emesis; denies any diarrhea/constipation, dysuria/hematuria, penile/testicular pain. Last BM earlier today, last meal yesterday. Patient denies chest pain, shortness of breath, fevers/chills Past History - Past Medical History Allergies/Adverse Reactions: Allergies Allergy/AdvReac Type Severity Reaction Status Date / Time No Known Allergies Allergy Verified 03/16/17 12:42 Home Medications: Ambulatory Orders NK [No Known Home Medication] 06/24/17 Cardiac Disorders: Yes (aaa last checked 09/2013) COPD: No - Surgical History Abdominal Surgery: Yes (sbo, hernia) Cholecystectomy: Yes GI Surgery: Yes (sbo with hernia repair) Orthopedic Surgery: Yes (rotator cuff x3) - Suicide/Smoking/Psychosocial Hx Smoking History: Never smoked Have you smoked in the past 12 months: No Hx Alcohol Use: Yes (wine) Drug/Substance Use Hx: No Substance Use Type: None Hx Substance Use Treatment: No Review of Systems - Review of Systems Constitutional: No: Chills, Fever Respiratory: No: Cough, Shortness of Breath Cardiac (ROS): No: Chest Pain, Lightheadedness, Palpitations, Syncope ABD/GI: Yes: Abdominal cramping. No: Constipated, Diarrhea, Nausea, Vomiting : No: Burning, Dysuria *Physical Exam - Vital Signs Last Vital Signs Temp Pulse Resp BP Pulse Ox 98.4 F 92 H 20 138/81 100 06/24/17 15:07 06/24/17 15:07 06/24/17 15:07 06/24/17 15:07 06/24/17 15:07 - Physical Exam General Appearance: Yes: Nourished, Appropriately Dressed Neck: positive: Trachea midline, Supple Respiratory/Chest: positive: Lungs Clear, Normal Breath Sounds Cardiovascular: positive: S1, S2. negative: Edema, JVD Vascular Pulses: Dorsalis-Pedis (R): 2+, Doralis-Pedis (L): 2+ Gastrointestinal/Abdominal: positive: Normal Bowel Sounds, Tender (LUQ TTP, guarding), Soft. negative: Hernia, Mass Musculoskeletal: negative: CVA Tenderness (R), CVA Tenderness (L) Extremity: positive: Normal Capillary Refill, Normal Inspection Integumentary: positive: Normal Color, Dry, Warm ED Treatment Course - LABORATORY CBC & Chemistry Diagram: 06/24/17 16:41 06/24/17 16:41 Medical Decision Making - Medical Decision Making 06/24/17 16:30 82 year old male with acute onset of diffuse abdominal pain. VS unremarkable. PE significant for mild LUQ guarding. Frontal diagnosis: SBO, mesenteric ischemia, aortic aneurysm, diverticulitis. Will obtain basic labs, CT Abdomen + contrast. Reasess 06/24/17 17:38 IV Morphine + IV NS 06/24/17 18:47 CBC shows no leukocytosis. CMP pending. Patient to be signed out to Dr. Mccray (Resident) and Dr. Hou (Attending) planned disposition pending results of CT. *DC/Admit/Observation/Transfer Diagnosis at time of Disposition: SBO (small bowel obstruction) - Discharge Dispostion Condition at time of disposition: Guarded - Referrals - Patient Instructions - Post Discharge Activity
[2017-06-24] MEDS ORDERED: morphine CARPU-JECT 4 MG/1 ML DISP.SYRIN IVPUSH ONE (16:21)
[2017-06-24] MEDS ORDERED: morphine SULFATE 4 MG/ML VIAL ONE (16:22)
[2017-06-24] MEDS ORDERED: ONDANSETRON 4 MG/2 ML VIAL ONE (16:22)
--- NOTE | 2017-06-24 16:22 | PDOC ---
Attending Attestation - Resident Resident Name: Teressa Muñoz - ED Attending Attestation I have performed the following: I have examined & evaluated the patient, The case was reviewed & discussed with the resident, I agree w/resident's findings & plan, Exceptions are as noted - HPI HPI: 06/24/17 16:45 MR Xavier is an 82 yo M who presents to the ER with a complaint of abdominal pain Briefly, he has a history of Afib, SVT, thoracic aneurysm, femoral hernia, recent admission for perforated ileal anastamosis, SBO, LANETTE Pt presents to the ER with abdominal pain which began today He was able to have a few small bowel movements Does not think he passed gas (+) nausea (+) vomiting - Physicial Exam PE: 06/24/17 16:58 Pt examined after pain medications RRR CTA abd soft, not distended, no tympanitic epigastric tenderness No involuntary guarding No rebound - Medical Decision Making 06/24/17 17:00 PT examination suspicious for possible SBO Will do: CT abd and pelvis Pain meds Re assess 06/24/17 17:03 EKG: Sinus rhythm rate of 79 bpm, axis is normal, intervals are normal, no ST elevations or depressions
[2017-06-24 18:29] LABS: BASO % 0.5 % (0-2.0); EOS % 0.2 % (0-4.5); HEMOGLOBIN 10.2 GM/dL (11.7-16.9); LYMPH % 7.6 % (8-40); MCH 24.2 pg (25.7-33.7); MCHC 31.9 g/dl (32.0-35.9); MEAN CELL VOLUME 75.9 fl (80-96); MEAN PLT VOLUME 9.8 fl (7.5-11.1); MONO % 5.1 % (3.8-10.2); NEUT % 86.6 % (42.8-82.8); PLATELET COUNT 362 K/MM3 (134-434); RBC 4.22 M/mm3 (4.00-5.60); RDW 17.2 % (11.9-15.9); WHITE BLOOD COUNT 10.3 K/mm3 (4.0-10.0)
[2017-06-24 18:52] LABS: PROTHROMBIN TIME (PATIENT) 11.3 SEC (9.7-13.0)
[2017-06-24 19:09] LABS: ALK PHOS 61 U/L (45-117); ANION GAP 7 (8-16); BILIRUBIN,TOTAL 0.7 mg/dL (0.2-1.0); BLOOD UREA NITROGEN 18 mg/dL (7-18); CALCIUM 8.9 mg/dL (8.5-10.1); CHLORIDE 107 mmol/L (98-107); CO2 25 mmol/L (21-32); CREATININE 1.1 mg/dL (0.7-1.3); GLUCOSE,RANDOM 114 mg/dL (74-106); SGOT/AST 31 U/L (15-37); SGPT/ALT 30 U/L (12-78); SODIUM 139 mmol/L (136-145); TOT PROT 7.6 g/dl (6.4-8.2)
--- NOTE | 2017-06-24 19:11 | PDOC ---
*Physical Exam - Vital Signs Last Vital Signs Temp Pulse Resp BP Pulse Ox 98.4 F 92 H 20 138/81 100 06/24/17 15:07 06/24/17 15:07 06/24/17 15:07 06/24/17 15:07 06/24/17 15:07 06/24/17 19:09 Care endorsed to me by Dr. Muñoz. 82 YOM with h/o SBO and ventral hernia repair , p/w acute abdominal pain diffusely worse in LUQ, BM two today which were normal, awaiting results of lab, if Cr is <1.[address] to r/o SBO etc. ED Treatment Course - LABORATORY CBC & Chemistry Diagram: 06/28/17 09:15 06/28/17 09:15 - ADDITIONAL ORDERS Additional order review: Laboratory Results 06/24/17 16:41 PT with INR 11.30 INR 1.00 06/24/17 16:41 RBC 4.22 MCV 75.9 L MCHC 31.9 L RDW 17.2 H D MPV 9.8 Neutrophils % 86.6 H Lymphocytes % 7.6 L Monocytes % 5.1 Eosinophils % 0.2 D Basophils % 0.5 - Medications Given in the ED: ED Medications Discontinued Medications Generic Name Dose Route Start Last Admin Trade Name Freq PRN Reason Stop Dose Admin Morphine Sulfate 4 mg 06/24/17 16:21 06/24/17 16:27 Morphine Injection - IVPUSH 06/24/17 16:22 4 mg ONCE ONE Administration Ondansetron HCl 4 mg 06/24/17 15:13 06/24/17 16:27 Zofran Injection IVPUSH 06/24/17 15:14 4 mg ONCE ONE Administration Medical Decision Making - Medical Decision Making 06/24/17 19:[address] as Cr is wnl. 06/24/17 21:23 CT shows distal SBO without clear transition point. Small amount of fluid around the mesentery. Microblog sent to [facility] for admission (PCP Agustina). Calling Dr. Berrios. 06/24/17 21:[address] Berrios who will see the patient in the AM. Spoke with [employer]ITY [employer]OURCE OFFICER Leanne Hong who will admit the patient to Dr. Berrios, Med /Surg Inpatient. Call placed to Dr. Webb (patient's surgeon). 06/24/17 22:03 Spoke with on-call provider for Dr. Webb's group; they will see the patient tomorrow. Consult order placed to Dr. Webb. *DC/Admit/Observation/Transfer Diagnosis at time of Disposition: SBO (small bowel obstruction) - Discharge Dispostion Condition at time of disposition: Guarded Decision to Admit order: Yes - Referrals - Patient Instructions - Post Discharge Activity
[2017-06-24] MEDS ORDERED: SODIUM CHLORIDE 0.9% 500 ML INFUS.BAG IV ONE (21:22)
[2017-06-24] MEDS ORDERED: ACETAMINOPHEN 1000 MG/100 ML VIAL (NON FORMULARY) IVPB ONE (21:23)
[2017-06-24] MEDS ORDERED: ACETAMINOPHEN INJECTION 100 ML IVPB ONE (21:30)
--- NOTE | 2017-06-24 22:43 | HP ---
CHIEF COMPLAINT: Abdominal Pain, Nausea PCP: Dr. Berrios HISTORY OF PRESENT ILLNESS: This is a 82 y/o man with a PMH SBO and perforated viscus 02/2017 (Dr. Webb), Thoracic Aortic Aneurysm (2013), mild-mod AI, SVT, Inguinal SBO hernia repair. Who presents to the ED with abdominal pain, cramping, and nausea. Patient denies fever, chills, cough, SOB, CP, V/D, constipation, dysuria. ER course was notable for: (1) CTAP- Distal small bowel obstruction.mild biliary tract dilatation, Sigmoid Divertculosis (2) Chest Xray- no acute pathology (3) WBC 10.3 (4) H/H Recent Travel: None PAST MEDICAL HISTORY: See HPI PAST SURGICAL HISTORY: Bowel Resection Hernia Repair Cholecystectomy Rotator Cuff x3 Social History: Smoking: Alcohol: Drugs: Family History: Non-contributory Allergies No Known Allergies Allergy (Verified 03/16/17 12:42) HOME MEDICATIONS: Home Medications Medication Instructions Recorded NK [No Known Home Medication] 06/24/17 REVIEW OF SYSTEMS CONSTITUTIONAL: Absent: fever, chills, diaphoresis, generalized weakness, malaise, loss of appetite, weight change HEENT: Absent: rhinorrhea, nasal congestion, throat pain, throat swelling, difficulty swallowing, mouth swelling, ear pain, eye pain, visual changes CARDIOVASCULAR: Absent: chest pain, syncope, palpitations, irregular heart rate, lightheadedness , peripheral edema RESPIRATORY: Absent: cough, shortness of breath, dyspnea with exertion, orthopnea, wheezing, stridor, hemoptysis GASTROINTESTINAL: abdominal pain, nausea Absent: abdominal distension, vomiting, diarrhea, constipation, melena, hematochezia GENITOURINARY: Absent: dysuria, frequency, urgency, hesitancy, hematuria, flank pain, genital pain MUSCULOSKELETAL: Absent: myalgia, arthralgia, joint swelling, back pain, neck pain SKIN: Absent: rash, itching, pallor HEMATOLOGIC/IMMUNOLOGIC: Absent: easy bleeding, easy bruising, lymphadenopathy, frequent infections ENDOCRINE: Absent: unexplained weight gain, unexplained weight loss, heat intolerance, cold intolerance NEUROLOGIC: Absent: headache, focal weakness or paresthesias, dizziness, unsteady gait, seizure, mental status changes, bladder or bowel incontinence PSYCHIATRIC: Absent: anxiety, depression, suicidal or homicidal ideation, hallucinations. PHYSICAL EXAMINATION Vital Signs - 24 hr 06/24/17 06/24/17 15:07 22:30 Temperature 98.4 F 98.1 F Pulse Rate 92 H Pulse Rate [ 84 Left] Respiratory 20 18 Rate Blood Pressure 138/81 Blood Pressure 131/86 [Left Arm] O2 Sat by Pulse 100 99 Oximetry (%) GENERAL: Awake, alert, and fully oriented, in no acute distress. HEAD: Normal with no signs of trauma. EYES: Pupils equal, round and reactive to light, extraocular movements intact, sclera anicteric, conjunctiva clear. No lid lag. EARS, NOSE, THROAT: Ears normal, nares patent, oropharynx clear without exudates. Dry mucous membranes. NECK: Normal range of motion, supple without lymphadenopathy, JVD, or masses. LUNGS: Breath sounds equal, clear to auscultation bilaterally. No wheezes, and no crackles. No accessory muscle use. HEART: Regular rate and rhythm, normal S1 and S2 without murmur, rub or gallop. ABDOMEN: Soft, mid umbilical tenderness, distended, hypoactive bowel sounds, no guarding, no rebound, no masses. No hepatomegaly or splenomegaly. MUSCULOSKELETAL: Normal range of motion at all joints. No bony deformities or tenderness. No CVA tenderness. UPPER EXTREMITIES: 2+ pulses, warm, well-perfused. No cyanosis. No clubbing. No peripheral edema. LOWER EXTREMITIES: 2+ pulses, warm, well-perfused. No calf tenderness. No peripheral edema. NEUROLOGICAL: Cranial nerves II-XII intact. Normal speech. Gait not observed. PSYCHIATRIC: Cooperative. Good eye contact. Appropriate mood and affect. SKIN: Warm, dry, normal turgor, no rashes or lesions noted, normal capillary refill. Laboratory Results - last 24 hr 06/24/17 06/24/17 06/24/17 16:41 16:41 16:41 WBC 10.3 H RBC 4.22 Hgb 10.2 L Hct 32.0 L MCV 75.9 L MCH 24.2 L MCHC 31.9 L RDW 17.2 H D Plt Count 362 D MPV 9.8 Neutrophils % 86.6 H Lymphocytes % 7.6 L Monocytes % 5.1 Eosinophils % 0.2 D Basophils % 0.5 PT with INR 11.30 INR 1.00 Sodium 139 Potassium 5.0 D Chloride 107 Carbon Dioxide 25 Anion Gap 7 L BUN 18 D Creatinine 1.1 Creat Clearance w eGFR > 60 Random Glucose 114 H Lactic Acid Calcium 8.9 Total Bilirubin 0.7 AST 31 D ALT 30 Alkaline Phosphatase 61 Total Protein 7.6 D Albumin 4.0 D Lipase Blood Type Antibody Screen 06/24/17 06/24/17 06/24/17 16:41 16:41 16:41 WBC RBC Hgb Hct MCV MCH MCHC RDW Plt Count MPV Neutrophils % Lymphocytes % Monocytes % Eosinophils % Basophils % PT with INR INR Sodium Potassium Chloride Carbon Dioxide Anion Gap BUN Creatinine Creat Clearance w eGFR Random Glucose Lactic Acid 1.1 Calcium Total Bilirubin AST ALT Alkaline Phosphatase Total Protein Albumin Lipase 108 Blood Type A POSITIVE Antibody Screen Negative ASSESSMENT/PLAN: This is a 82 y/o man with a PMH: SBO and perforated viscus (02/2017), Thoracic Aortic Aneurysm, mild-mod AI, SVT, Inguinal Hernia Repair. Admitted for SBO. Problem List - Problem (1) Small bowel obstruction Assessment/Plan: - Hx SBO - s/p bowel resection 02/2017 - CTAP- distal small bowel obstruction, mild biliary tract dilatation, Sigmoid Diverticulosis - Appreciate Surgical Consult - NPO - IVF - NGT not placed / no active emesis - Repeat CBC, BMP - Monitor vitals Code(s): K56.69 - OTHER INTESTINAL OBSTRUCTION * DO NOT USE * (2) HTN (hypertension) Assessment/Plan: - Stable - Monitor BP - No current med Code(s): I10 - ESSENTIAL (PRIMARY) HYPERTENSION Qualifiers: (3) BPH (benign prostatic hyperplasia) Assessment/Plan: - stable - no current med - f/u with Urology outpatient Code(s): N40.0 - BENIGN PROSTATIC HYPERPLASIA WITHOUT LOWER URINRY TRACT SYMP (4) Aortic valve insufficiency Assessment/Plan: - Continue to monitor Code(s): I35.1 - NONRHEUMATIC AORTIC (VALVE) INSUFFICIENCY (5) Inguinal hernia Assessment/Plan: - s/p repair Code(s): K40.90 - UNIL INGUINAL HERNIA, W/O OBST OR GANGR, NOT SPCF RECUR (6) Thoracic aneurysm Assessment/Plan: - Continue to monitor, treat accordingly Code(s): I71.2 - THORACIC AORTIC ANEURYSM, WITHOUT RUPTURE (7) DVT prophylaxis Assessment/Plan: - OOB - SCDs - Heparin SQ Code(s): QFP0283 - Visit type - Emergency Visit Emergency Visit: Yes ED Registration Date: 06/24/17 Care time: The patient presented to the Emergency Department on the above date and was hospitalized for further evaluation of their emergent condition. - New Patient This patient is new to me today: Yes Date on this admission: 06/24/17 - Critical Care Critical Care patient: No Hospitalist Screening - Colonoscopy Questionnaire Colonoscopy Questionnaire: Colonoscopy Questionnaire - Patient: 50 - 75 years old and never had a screening colonoscopy: No History of colon or rectal polyps, or CA: No History of IBD, Crohn's disease or UC: No History of abdominal radiation therapy as a child: No - Relative: 1 with colon or rectal CA, or polyps at age 60 or younger: No Colon or rectal CA diagnosed at age 45 or younger: No Multiple relatives with colon or rectal CA: No - Outcome: Screening Result: Negative Screen
[2017-06-24] MEDS ORDERED: DEXTROSE 5%-0.45% SALINE 1,000 ML IV SCH (22:45)
[2017-06-24] MEDS ORDERED: morphine SULFATE 4 MG/ML VIAL IVPUSH PRN (23:20)
[2017-06-24] MEDS ORDERED: ONDANSETRON 4 MG/2 ML VIAL IVPUSH PRN (23:20)
[2017-06-25 00:36] VITALS: BMI 20.3
[2017-06-25 07:21] LABS: BASO % 0.9 % (0-2.0); EOS % 2.6 % (0-4.5); HEMATOCRIT 27.4 % (35.4-49); HEMOGLOBIN 8.7 GM/dL (11.7-16.9); LYMPH % 12.1 % (8-40); MCH 24.2 pg (25.7-33.7); MCHC 31.7 g/dl (32.0-35.9); MEAN CELL VOLUME 76.3 fl (80-96); MONO % 10.7 % (3.8-10.2); NEUT % 73.7 % (42.8-82.8); PLATELET COUNT 293 K/MM3 (134-434); RBC 3.59 M/mm3 (4.00-5.60); RDW 17.3 % (11.9-15.9); WHITE BLOOD COUNT 8.5 K/mm3 (4.0-10.0)
[2017-06-25 07:50] LABS: ANION GAP 8 (8-16); BLOOD UREA NITROGEN 17 mg/dL (7-18); CALCIUM 8.1 mg/dL (8.5-10.1); CHLORIDE 109 mmol/L (98-107); CO2 25 mmol/L (21-32); GLUCOSE,RANDOM 96 mg/dL (74-106); MAGNESIUM 2.1 mg/dL (1.8-2.4); PHOSPHOROUS 2.8 mg/dL (2.5-4.9); SODIUM 142 mmol/L (136-145)
--- NOTE | 2017-06-25 08:12 | PN ---
Progress Note, Physician - Current Medication List Current Medications: Active Medications Dextrose/Sodium Chloride (D5-1/2ns -) 1,000 mls @ 100 mls/hr IV ASDIR TAWNY Morphine Sulfate (Morphine Sulfate) 2 mg IVPUSH Q4H PRN PRN Reason: PAIN LEVEL 6-10 Ondansetron HCl (Zofran Injection) 4 mg IVPUSH Q6H PRN PRN Reason: NAUSEA - Objective Vital Signs: Vital Signs Temperature 97.7 F 06/25/17 06:00 Pulse Rate 74 06/25/17 06:00 Respiratory Rate 20 06/25/17 06:00 Blood Pressure 109/63 06/25/17 06:00 O2 Sat by Pulse Oximetry (%) 99 06/24/17 22:30 Labs: CBC, BMP 06/25/17 06:20 INR, PTT INR 1.00 (0.82-1.09) 06/24/17 16:41
--- NOTE | 2017-06-25 08:17 | PN ---
Progress Note, Physician Chief Complaint: 82 y.o M was admitted yesterday to [facility] with severe abdominal pain and vomiting. CT abdomen showed distal SBO and the pt was admitted for further management. The patient underwent surgery for distal SBO and perforated viscus in February 2017. History of Present Illness: Exp lap for perforated viscus and SBO 03/12 Thoracic aortic aneurysm. Mild-Mod AI. Episodes SVT S/P inguinal hernia repair. Femoral hernia repair. Previous SBO Cholecystectomy - Current Medication List Current Medications: Active Medications Dextrose/Sodium Chloride (D5-1/2ns -) 1,000 mls @ 100 mls/hr IV ASDIR TAWNY Morphine Sulfate (Morphine Sulfate) 2 mg IVPUSH Q4H PRN PRN Reason: PAIN LEVEL 6-10 Ondansetron HCl (Zofran Injection) 4 mg IVPUSH Q6H PRN PRN Reason: NAUSEA - Objective Vital Signs: Vital Signs Temperature 97.7 F 06/25/17 06:00 Pulse Rate 74 06/25/17 06:00 Respiratory Rate 20 06/25/17 06:00 Blood Pressure 109/63 06/25/17 06:00 O2 Sat by Pulse Oximetry (%) 99 06/24/17 22:30 Constitutional: Yes: Anxious, Mild Distress Eyes: Yes: Conjunctiva Clear, EOM Intact. No: Diplopia HENT: Yes: Atraumatic, Normocephalic Neck: Yes: Supple, Trachea Midline. No: Decreased ROM, Lymphadenopathy Cardiovascular: Yes: Regular Rate and Rhythm, S1, S2. No: Bradycardia, Tachycardia, JVD Respiratory: Yes: Regular, CTA Bilaterally. No: Cough Gastrointestinal: Yes: Normal Bowel Sounds, Soft, Other (Healed midline suprapubic scar). No: Distention, Palpable Mass, Pulsatile Mass, Splenomegaly, Vomiting ...Rectal Exam: Yes: Deferred Genitourinary: No: Anuria, Bladder Distention Breast(s): Yes: WNL Musculoskeletal: Yes: WNL. No: Joint Stiffness, Joint Swelling Extremities: Yes: WNL. No: Amputation, Calf Tenderness, Cold Edema: No Peripheral Pulses WNL: No Integumentary: Yes: WNL Neurological: Yes: Alert, Oriented. No: Aphasia, Confusion, Lethargy, Unsteady Gait, Weakness ...Motor Strength: WNL Psychiatric: Yes: WNL Labs: CBC, BMP 06/25/17 06:20 INR, PTT INR 1.00 (0.82-1.09) 06/24/17 16:41 Problem List - Problems (1) Small bowel obstruction Assessment/Plan: Continue NPO IV fluids Pt was discussed with Dr Webb-surgeon, official consult-P Code(s): K56.69 - OTHER INTESTINAL OBSTRUCTION * DO NOT USE * (2) DVT prophylaxis Code(s): PJK2855 - (3) HTN (hypertension) Assessment/Plan: BP is controlled. Code(s): I10 - ESSENTIAL (PRIMARY) HYPERTENSION Qualifiers: Hypertension type: essential hypertension Qualified Code(s): I10 - Essential (primary) hypertension (4) BPH (benign prostatic hyperplasia) Code(s): N40.0 - BENIGN PROSTATIC HYPERPLASIA WITHOUT LOWER URINRY TRACT SYMP Qualifiers: Lower urinary tract symptom presence: symptoms absent Qualified Code(s): N40.0 - Benign prostatic hyperplasia without lower urinary tract symptoms (5) Elevated LFTs Assessment/Plan: Now normal LFT Will follow Code(s): R79.89 - OTHER SPECIFIED ABNORMAL FINDINGS OF BLOOD CHEMISTRY (6) Anemia Assessment/Plan: Follow H/H Iron, N12, folate studies. Code(s): D64.9 - ANEMIA, UNSPECIFIED Qualifiers: Anemia type: unspecified type Qualified Code(s): D64.9 - Anemia, unspecified
[2017-06-25] MEDS: DEXTROSE 5%-0.45% SALINE 1,000 ML IV SCH ×3 (08:18→23:35)
--- NOTE | 2017-06-25 11:29 | EKG ---
Test Reason : Blood Pressure : / mmHG Vent. Rate : 079 BPM Atrial Rate : 079 BPM P-R Int : 190 ms QRS Dur : 088 ms QT Int : 388 ms P-R-T Axes : 018 -12 015 degrees QTc Int : 444 ms NORMAL SINUS RHYTHM NORMAL ECG WHEN COMPARED WITH ECG OF 16-MAR-2017 16:20, NO SIGNIFICANT CHANGE WAS FOUND Confirmed by ASMITA HILL MD ([id number]) on 06/25/2017 11:28:54 AM Referred By: Confirmed By:ASMITA HILL MD
--- NOTE | 2017-06-25 13:07 | PN ---
Progress Note (short form) - Note Progress Note: surgery pt seen and examined. 82m well known to me for previous sbr in February for perforated distal small bowel anastamosis secondary to obstruction. Proximal bowel was adhesed to pelvic mesh and not lysed. Pt was well until eating a large amount of broccoli priscila and oatmeal and developed abd pain with n/v. He was admitted for sbo without ngt and currently denies pain and feels better. no flatus. On exam the abd is soft, mild distension, mild suprapubic tenderness. Ct shows large fiber bolus filling the anastamosis Plan- psbo secondary to large fiber bolus and adhesions. Unlikley anastamotic stricture with no weight loss in 5 months. suspect he is better. Keep ngt out. Will keep npo. will give dose of oral contrast today and check kub tomorrow.
[2017-06-26 08:51] LABS: EOS % 4.4 % (0-4.5); HEMATOCRIT 26.6 % (35.4-49); HEMOGLOBIN 8.4 GM/dL (11.7-16.9); LYMPH % 14.8 % (8-40); MCH 23.9 pg (25.7-33.7); MCHC 31.7 g/dl (32.0-35.9); MEAN CELL VOLUME 75.6 fl (80-96); MEAN PLT VOLUME 9.1 fl (7.5-11.1); MONO % 10.1 % (3.8-10.2); NEUT % 69.7 % (42.8-82.8); PLATELET COUNT 286 K/MM3 (134-434); RBC 3.53 M/mm3 (4.00-5.60); RDW 17.3 % (11.9-15.9); WHITE BLOOD COUNT 6.1 K/mm3 (4.0-10.0)
--- NOTE | 2017-06-26 08:51 | PN ---
Progress Note, Physician Chief Complaint: Seen by surgeon. Less RLQ abdominal pain. History of Present Illness: Exp lap for perforated viscus and SBO 03/12 Thoracic aortic aneurysm. Mild-Mod AI. Episodes SVT S/P inguinal hernia repair. Femoral hernia repair. Previous SBO Cholecystectomy - Current Medication List Current Medications: Active Medications Dextrose/Sodium Chloride (D5-1/2ns -) 1,000 mls @ 100 mls/hr IV ASDIR TAWNY Last Admin: 06/25/17 23:35 Dose: 100 mls/hr Ondansetron HCl (Zofran Injection) 4 mg IVPUSH Q6H PRN PRN Reason: NAUSEA - Objective Vital Signs: Vital Signs Temperature 98.1 F 06/26/17 05:38 Pulse Rate 76 06/26/17 05:38 Respiratory Rate 20 06/25/17 22:41 Blood Pressure 115/66 06/26/17 05:38 O2 Sat by Pulse Oximetry (%) 99 06/24/17 22:30 Constitutional: Yes: No Distress, Anxious Eyes: Yes: Conjunctiva Clear, EOM Intact HENT: Yes: Atraumatic, Normocephalic Neck: Yes: Supple, Trachea Midline Cardiovascular: Yes: Regular Rate and Rhythm. No: Bradycardia, Tachycardia Respiratory: Yes: Regular, CTA Bilaterally Gastrointestinal: Yes: Soft, Tenderness (RLQ). No: Abdomen, Obese, Ascites, Tenderness, Rebound, Vomiting ...Rectal Exam: Yes: Deferred Genitourinary: No: Anuria Breast(s): Yes: WNL Extremities: Yes: WNL Edema: No Peripheral Pulses WNL: Yes Integumentary: Yes: WNL Neurological: Yes: WNL ...Motor Strength: WNL Psychiatric: Yes: WNL Labs: INR, PTT INR 1.00 (0.82-1.09) 06/24/17 16:41 Problem List - Problems (1) Small bowel obstruction Assessment/Plan: KUB with Gastrographin-pending today Surgical F/u Advance diet as per Dr. Webb Code(s): K56.69 - OTHER INTESTINAL OBSTRUCTION * DO NOT USE * (2) DVT prophylaxis Code(s): [id number] - (3) HTN (hypertension) Assessment/Plan: BP is controlled. Code(s): I10 - ESSENTIAL (PRIMARY) HYPERTENSION Qualifiers: Hypertension type: essential hypertension Qualified Code(s): I10 - Essential (primary) hypertension (4) BPH (benign prostatic hyperplasia) Code(s): N40.0 - BENIGN PROSTATIC HYPERPLASIA WITHOUT LOWER URINRY TRACT SYMP Qualifiers: Lower urinary tract symptom presence: symptoms absent Qualified Code(s): N40.0 - Benign prostatic hyperplasia without lower urinary tract symptoms (5) Elevated LFTs Assessment/Plan: Now normal LFT Will follow Code(s): R79.89 - OTHER SPECIFIED ABNORMAL FINDINGS OF BLOOD CHEMISTRY (6) Anemia Code(s): D64.9 - ANEMIA, UNSPECIFIED Qualifiers: Anemia type: unspecified type Qualified Code(s): D64.9 - Anemia, unspecified
[2017-06-26 08:53] LABS: CHLORIDE 107 mmol/L (98-107); POTASSIUM 3.9 mmol/L (3.5-5.1); SODIUM 138 mmol/L (136-145)
[2017-06-26 09:08] LABS: ALK PHOS 51 U/L (45-117); ANION GAP 3 (8-16); BILIRUBIN,TOTAL 0.9 mg/dL (0.2-1.0); BLOOD UREA NITROGEN 11 mg/dL (7-18); CALCIUM 7.6 mg/dL (8.5-10.1); CO2 28 mmol/L (21-32); GLUCOSE,RANDOM 96 mg/dL (74-106); SGOT/AST 18 U/L (15-37); SGPT/ALT 20 U/L (12-78); TOT PROT 5.8 g/dl (6.4-8.2)
[2017-06-26] MEDS: DEXTROSE 5%-0.45% SALINE 1,000 ML IV SCH (10:02)
--- NOTE | 2017-06-26 12:36 | PN ---
Progress Note (short form) - Note Progress Note: surgery pt seen and examined. feels well but mild discomfort. no nausea. kub shows contrast in colon with some dilated small bowel. afebrile. abd- soft, mild distension, minimal suprapubic tenderness. Plan- resolving psbo. would cont npo today. can give trial of liquids tomorrow and consider discharge if tolerates. would then stay on liquids for full week and would avoid fiber boluses in the future.
[2017-06-27] MEDS: DEXTROSE 5%-0.45% SALINE 1,000 ML IV SCH ×2 (06:23→07:30)
[2017-06-27 08:09] LABS: SERUM IRON SATURATION 6 % (15-55); TOTAL IRON BINDING CAPACITY 309 ug/dL (250-450); UIBC 290 ug/dL (111-343)
[2017-06-27 08:26] LABS: EOS % 4.8 % (0-4.5); HEMATOCRIT 29.8 % (35.4-49); HEMOGLOBIN 9.6 GM/dL (11.7-16.9); LYMPH % 16.1 % (8-40); MCH 24.4 pg (25.7-33.7); MCHC 32.3 g/dl (32.0-35.9); MEAN CELL VOLUME 75.3 fl (80-96); MEAN PLT VOLUME 9.1 fl (7.5-11.1); MONO % 10.6 % (3.8-10.2); NEUT % 67.5 % (42.8-82.8); PLATELET COUNT 309 K/MM3 (134-434); RBC 3.96 M/mm3 (4.00-5.60); WHITE BLOOD COUNT 6.6 K/mm3 (4.0-10.0)
[2017-06-27 08:45] LABS: ALBUMIN 3.1 g/dl (3.4-5.0); ALK PHOS 54 U/L (45-117); ANION GAP 4 (8-16); BILIRUBIN,TOTAL 0.7 mg/dL (0.2-1.0); BLOOD UREA NITROGEN 9 mg/dL (7-18); CHLORIDE 108 mmol/L (98-107); CO2 27 mmol/L (21-32); CREATININE 0.9 mg/dL (0.7-1.3); GLUCOSE,RANDOM 104 mg/dL (74-106); POTASSIUM 3.8 mmol/L (3.5-5.1); SGOT/AST 19 U/L (15-37); SGPT/ALT 22 U/L (12-78); SODIUM 139 mmol/L (136-145); TOT PROT 6.2 g/dl (6.4-8.2)
--- NOTE | 2017-06-27 11:37 | PN ---
Physical Exam: SUBJECTIVE: Patient seen and examined at the bedside. Feels well, in no distress. Reports to BMs yesterday, one this morning Denies nausea/vomiting/abdominal luna OBJECTIVE: abdomen non distended, + bowel sounds, +flatus start on clears and monitor intake Vital Signs Period Temp Pulse Resp BP Sys/Carballo Pulse Ox Last 24 Hr 97.5 F-98.2 F 64-69 18-20 122-137/69-81 GENERAL: The patient is awake, alert, and fully oriented, in no acute distress. HEAD: Normal with no signs of trauma. EYES: PERRL, extraocular movements intact, sclera anicteric, conjunctiva clear. No ptosis. ENT: Ears normal, nares patent, oropharynx clear without exudates, moist mucous membranes. NECK: Trachea midline, full range of motion, supple. LUNGS: Breath sounds equal, clear to auscultation bilaterally, no wheezes ABDOMEN: Soft, nontender, nondistended, normoactive bowel sounds, no guarding, no rebound, no hepatosplenomegaly, no masses. EXTREMITIES: no edema. NEUROLOGICAL: Normal speech, gait not observed. PSYCH: Normal mood, normal affect. SKIN: Warm, dry, normal turgor, no rashes or lesions noted Laboratory Results - last 24 hr 06/26/17 06/27/17 06/27/17 08:10 07:00 07:00 WBC 6.6 RBC 3.96 L Hgb 9.6 L D Hct 29.8 L MCV 75.3 L MCH 24.4 L MCHC 32.3 RDW 17.0 H Plt Count 309 MPV 9.1 Neutrophils % 67.5 Lymphocytes % 16.1 Monocytes % 10.6 H Eosinophils % 4.8 H Basophils % 1.0 Sodium 139 Potassium 3.8 Chloride 108 H Carbon Dioxide 27 Anion Gap 4 L BUN 9 Creatinine 0.9 Creat Clearance w eGFR > 60 Random Glucose 104 Calcium 8.0 L Iron 19 L TIBC 309 Iron Saturation 6 L Total Bilirubin 0.7 D AST 19 ALT 22 Alkaline Phosphatase 54 Total Protein 6.2 L Albumin 3.1 L Active Medications Generic Name Dose Route Start Last Admin Trade Name Freq PRN Reason Stop Dose Admin Dextrose/Sodium Chloride 1,000 mls @ 100 mls/hr 06/25/17 07:35 06/27/17 06:23 D5-1/2ns - IV 100 mls/hr ASDIR TAWNY Administration Ondansetron HCl 4 mg 06/24/17 23:20 Zofran Injection IVPUSH Q6H PRN NAUSEA ASSESSMENT/PLAN: Patient is an 82 year old male with a significant past medical history of SBO and perforated viscus 02/2017 (Dr. Webb), Thoracic Aortic Aneurysm (2013), mild-mod AI, SVT, Inguinal SBO. He presents to the ED on 06/24/2017 with abdominal pain, cramping, and nausea. CTAP on admission showed distal small bowel obstruction, mild biliary tract dilatation an sigmoid divertculosis. Abdominal xray: no intestinal obstruction. GI: Small bowel obstruction, resolved Abdomen soft, non distended, having BMs No abdominal pain, nausea or vomiting Seen by surgery, surgical notes reviewed Will start trial of clears and monitor As per GI notes, patient can stay on liquids x 1 week on discharge and avoid fiber boluses AST/ALT within normal limits Continue IVF until fully tolerating diet. Card: Hypertension, controlled Heme: Anemia, chronic Monitor with daily CBC F.E.N. Fluids: tolerating PO, ivf Electrolytes: monitor daily Nutrition: clears Prophy: SCDs when in bed GI: Zantac Visit type - Emergency Visit Emergency Visit: Yes ED Registration Date: 06/24/17 Care time: The patient presented to the Emergency Department on the above date and was hospitalized for further evaluation of their emergent condition. - New Patient This patient is new to me today: Yes Date on this admission: 06/27/17 - Critical Care Critical Care patient: No - Discharge Referral Referred to [facility] No
--- NOTE | 2017-06-27 11:50 | PN ---
Progress Note (short form) - Note Progress Note: afeb,vss pt w flatus and bm no anorexia abd soft, no surgical findings diet as per gi/pmd no surg needed at this time will sign off
[2017-06-27] MEDS: RANITIDINE HCL 150 MG TABLET (FP) PO SCH (22:27)
[2017-06-28 09:56] LABS: BASO % 1.3 % (0-2.0); EOS % 3.2 % (0-4.5); HEMATOCRIT 32.2 % (35.4-49); HEMOGLOBIN 10.1 GM/dL (11.7-16.9); MCHC 31.4 g/dl (32.0-35.9); MEAN CELL VOLUME 76.4 fl (80-96); MONO % 8.8 % (3.8-10.2); NEUT % 71.7 % (42.8-82.8); PLATELET COUNT 360 K/MM3 (134-434); RBC 4.21 M/mm3 (4.00-5.60); RDW 17.4 % (11.9-15.9); WHITE BLOOD COUNT 7.8 K/mm3 (4.0-10.0)
[2017-06-28 10:05] LABS: ALBUMIN 3.5 g/dl (3.4-5.0); ALK PHOS 66 U/L (45-117); ANION GAP 7 (8-16); BILIRUBIN,TOTAL 0.8 mg/dL (0.2-1.0); BLOOD UREA NITROGEN 7 mg/dL (7-18); CALCIUM 8.3 mg/dL (8.5-10.1); CHLORIDE 107 mmol/L (98-107); CO2 26 mmol/L (21-32); CREATININE 1.1 mg/dL (0.7-1.3); GLUCOSE,RANDOM 93 mg/dL (74-106); MAGNESIUM 2.1 mg/dL (1.8-2.4); POTASSIUM 3.6 mmol/L (3.5-5.1); SGOT/AST 21 U/L (15-37); SGPT/ALT 22 U/L (12-78); SODIUM 140 mmol/L (136-145); TOT PROT 6.9 g/dl (6.4-8.2)
[2017-06-28] MEDS: RANITIDINE HCL 150 MG TABLET (FP) PO SCH (10:13)
[2017-06-28] MEDS: DEXTROSE 5%-0.45% SALINE 1,000 ML IV SCH (10:14)
--- NOTE | 2017-06-28 11:24 | DS ---
Physical Exam: SUBJECTIVE: Patient seen and examined at the bedside. Awake and alert. Ambulating in hallways. Eager to go home. OBJECTIVE: Will discharge today with strict dietary guidelines, patient to continue clears for 1 week Low iron sats, anemia Unable to take Ferrous sulfate as it can cause constipation and he is recovering from an SBO, will give 1 dose of venofer while in hospital. Spoke to daughter who agrees to follow up with heme and PCP outpatient. Vital Signs Period Temp Pulse Resp BP Sys/Carballo Pulse Ox Last 24 Hr 97.7 F-98.1 F 67-71 18-20 127-150/68-87 PHYSICAL EXAM GENERAL: The patient is awake, alert, and fully oriented, in no acute distress. HEAD: Normal with no signs of trauma. EYES: PERRL, extraocular movements intact, sclera anicteric, conjunctiva clear. No ptosis. ENT: Ears normal, nares patent, oropharynx clear without exudates, moist mucous membranes. NECK: Trachea midline, full range of motion, supple. LUNGS: Breath sounds equal, clear to auscultation bilaterally, no wheezes ABDOMEN: Soft, nontender, nondistended, normoactive bowel sounds, no guarding, no rebound, no hepatosplenomegaly, no masses. EXTREMITIES: no edema. NEUROLOGICAL: Normal speech, gait not observed. PSYCH: Normal mood, normal affect. SKIN: Warm, dry, normal turgor, no rashes or lesions noted LABS Laboratory Results - last 24 hr 06/28/17 06/28/17 09:15 09:15 WBC 7.8 RBC 4.21 Hgb 10.1 L Hct 32.2 L MCV 76.4 L MCH 24.0 L MCHC 31.4 L RDW 17.4 H Plt Count 360 MPV 9.0 Neutrophils % 71.7 Lymphocytes % 15.0 Monocytes % 8.8 Eosinophils % 3.2 Basophils % 1.3 Sodium 140 Potassium 3.6 Chloride 107 Carbon Dioxide 26 Anion Gap 7 L BUN 7 D Creatinine 1.1 D Creat Clearance w eGFR > 60 Random Glucose 93 Calcium 8.3 L Magnesium 2.1 Total Bilirubin 0.8 AST 21 ALT 22 Alkaline Phosphatase 66 D Total Protein 6.9 Albumin 3.5 HOSPITAL COURSE: Date of Admission:06/24/17 Date of Discharge: 06/28/17 Patient is an 82 year old male with a significant past medical history of SBO and perforated viscus 02/2017 (Dr. Webb), Thoracic Aortic Aneurysm (2014), mild-mod AI, SVT, Inguinal SBO. He presents to the ED on 06/24/2017 with abdominal pain, cramping, and nausea. CTAP on admission showed distal small bowel obstruction, mild biliary tract dilatation an sigmoid divertculosis. Abdominal xray: no intestinal obstruction. GI: Small bowel obstruction, resolved Abdomen soft, non distended, having BMs No abdominal pain, nausea or vomiting Seen by surgery, surgical notes reviewed As per GI notes, patient can stay on liquids x 1 week on discharge and avoid fiber boluses AST/ALT within normal limits Surgical follow up outpatient Card: Hypertension, controlled Heme: Anemia, chronic Iron sats low, given one dose of venofer while inpatient Advised daughter not to continue home iron pills until cleared by surgery and PCP Daughter to follow up with heme and PCP Disposition: full code. Patient in agreement to follow up with his primary care doctor for post hospital follow up. Minutes to complete discharge: 60 Discharge Summary Reason For Visit: SMALL BOWL OBSTRUCTION Current Active Problems Anemia (Acute) DVT prophylaxis (Acute) Small bowel obstruction (Acute) Condition: Improved - Instructions Diet, Activity, Other Instructions: Mr. Xavier: Thank you for allowing us to care for you. Please continue a clear liquid diet for 6 more [address] Please call Dr. Webb and make an appointment within 3-5 days after discharge. Clear liquid diet consists of: Apple juice Clear broth: chicken broth, vegetable broth, beef broth Jello Comfort evon Water Tea Fruit juices popsicles Strained soup (no solids) Clear liquid diet is easily digested and leaves no undigested residue in your intestines. Also, your the iron in your blood is low, you were given one dose of IV iron before you were discharged. You will need to follow up with Dr. Berrios and Dr. Bianchi for continuation of iron therapy. Please call me with any questions that you may have. Please see you primary care physician with 3-5 days after you have been discharged. [facility] [phone] Referrals: Tash Lau MD [Staff Physician] - 1 Week (chronic anemia) Jose E Berrios MD [Primary Care Provider] - 1 Week Elmer Webb MD [Staff Physician] - 1 Week Disposition: HOME - Home Medications Comprehensive Discharge Medication List: Ambulatory Orders NK [No Known Home Medication] 06/24/17 This patient is new to me today: No Emergency Visit: Yes ED Registration Date: 06/24/17 Care time: The patient presented to the Emergency Department on the above date and was hospitalized for further evaluation of their emergent condition. Critical Care patient: No - Discharge Referral Referred to [facility] No
[2017-06-28] MEDS ORDERED: IRON SUCROSE INJECTION 100 MG in SODIUM CHLORIDE 95 ML IVPB ONE (12:00)
[2017-06-28 14:56] VITALS: BP 120/79; PULSE 66; TEMP 97.9
== END 2017-06-28 15:42 | disposition home or self-care (01) | DRG 390 ==
LOC: JER 15:03 → JERBED 22:00 → J6S 06-25 00:58
PROVIDERS: ADMIT Internal Medicine; ATTEND Nurse Practitioner Family
DX: K56.699 Other intestinal obstruction unspecified as to partial versus complete obstruction (principal); I71.2 Thoracic aortic aneurysm, without rupture; I48.91 Unspecified atrial fibrillation; K41.90 Unilateral femoral hernia, without obstruction or gangrene, not specified as recurrent; I35.1 Nonrheumatic aortic (valve) insufficiency; K57.30 Diverticulosis of large intestine without perforation or abscess without bleeding; K82.8 Other specified diseases of gallbladder; N40.0 Benign prostatic hyperplasia without lower urinary tract symptoms; R79.89 Other specified abnormal findings of blood chemistry; D64.9 Anemia, unspecified
CPT/HCPCS: 36415; 71045-TC-FY; 74018-TC-FY; 74177-TC; 80048; 80053; 82607; 82728; 82746; 83540; 83550; 83605; 83690; 83735; 84100; 85025; 85610; 86850; 86900; 86901; 93005; 93010; 99284-25; J0131; J1756

== ENCOUNTER 2017-07-23 08:58 | Day surgery (SDC) | payer OTHER, BC ==
[2017-07-23] MEDS ORDERED: diphenhydrAMINE HCL 25 MG CAPSULE (FP) PO PRN (09:41)
[2017-07-23] MEDS ORDERED: HYDROCORTISONE SOD SUCCINATE 100 MG/2 ML VIAL IVPUSH PRN (09:42)
[2017-07-23] MEDS ORDERED: IRON SUCROSE INJECTION 100 MG in SODIUM CHLORIDE 100 ML IVPB ONE (10:00)
[2017-07-23 13:06] VITALS: BP 116/67; PULSE 68; TEMP 98.3
== END 2017-07-23 11:30 | disposition home or self-care (01) ==
LOC: JINFUSION 08:58
PROVIDERS: ATTEND Internal Medicine
PROC: 3E033GC Introduction of Other Therapeutic Substance into Peripheral Vein, Percutaneous Approach (ICD-10-PCS; principal; 2017-07-23)
DX: D50.9 Iron deficiency anemia, unspecified (principal)
CPT/HCPCS: 96365; J1756

== ENCOUNTER 2017-08-17 08:29 | Day surgery (SDC) | payer OTHER, BC ==
[2017-08-17] MEDS ORDERED: diphenhydrAMINE HCL 25 MG CAPSULE (FP) PO PRN (09:22)
[2017-08-17] MEDS ORDERED: HYDROCORTISONE SOD SUCCINATE 100 MG/2 ML VIAL IVPB PRN (09:23)
[2017-08-17] MEDS ORDERED: IRON SUCROSE INJECTION 100 MG in SODIUM CHLORIDE 100 ML IVPB ONE (10:00)
[2017-08-17 16:08] VITALS: BP 116/82; PULSE 62; TEMP 98.7
== END 2017-08-17 12:05 | disposition home or self-care (01) ==
LOC: JINFUSION 08:29
PROVIDERS: ATTEND Internal Medicine
PROC: 3E033GC Introduction of Other Therapeutic Substance into Peripheral Vein, Percutaneous Approach (ICD-10-PCS; principal; 2017-08-17)
DX: D50.9 Iron deficiency anemia, unspecified (principal)
CPT/HCPCS: 96365

== ENCOUNTER 2018-06-23 08:50 | Day surgery (SDC) | payer OTHER, BC ==
[2018-06-23 09:09] VITALS: TEMP 97.7
[2018-06-23] MEDS ORDERED: IRON SUCROSE INJECTION 100 MG in SODIUM CHLORIDE 100 ML IVPB ONE (10:00)
[2018-06-23 11:07] VITALS: BP 118/67; PULSE 69
== END 2018-06-23 11:05 | disposition home or self-care (01) ==
LOC: JASU-ENDO 08:50
PROVIDERS: ATTEND Internal Medicine
PROC: 3E033GC Introduction of Other Therapeutic Substance into Peripheral Vein, Percutaneous Approach (ICD-10-PCS; principal; 2018-06-23)
DX: D50.9 Iron deficiency anemia, unspecified (principal)
CPT/HCPCS: 96365; J1756

== ENCOUNTER → 2018-07-15 | Day surgery (SDC) | payer OTHER, BC | END | disposition home or self-care (01) | LOC: JINFUSION 16:19 ==

== ENCOUNTER 2018-07-22 11:30 | Day surgery (SDC) | payer OTHER, BC ==
[2018-07-22] MEDS ORDERED: IRON SUCROSE INJECTION 100 MG in SODIUM CHLORIDE 100 ML IVPB SCH (12:00)
[2018-07-22 15:31] VITALS: BP 142/70; PULSE 68; TEMP 98
== END 2018-07-22 13:45 | disposition home or self-care (01) ==
LOC: JINFUSION 11:30
PROVIDERS: ATTEND Internal Medicine
DX: D50.9 Iron deficiency anemia, unspecified (principal)
CPT/HCPCS: 96365; J1756

== ENCOUNTER 2018-07-28 11:22 | Day surgery (SDC) | payer OTHER, BC ==
[~2018-07-28 11:22] MED LIST: IRON SUCROSE INJECTION 100 MG in SODIUM CHLORIDE 100 ML IVPB ONE
[2018-07-28 12:24] VITALS: TEMP 98.3
[2018-07-28 14:01] VITALS: BP 106/73; PULSE 78
== END 2018-07-28 12:58 | disposition home or self-care (01) ==
LOC: JINFUSION 11:22
PROVIDERS: ATTEND Internal Medicine
PROC: 3E033GC Introduction of Other Therapeutic Substance into Peripheral Vein, Percutaneous Approach (ICD-10-PCS; principal; 2018-07-28)
DX: D50.9 Iron deficiency anemia, unspecified (principal)
CPT/HCPCS: 96365; J1756

== ENCOUNTER 2018-12-20 10:34 | Day surgery (SDC) | payer OTHER, BC ==
[~2018-12-20 10:34] MED LIST changes: +FERRIC CARBOXYMALTOSE 750 MG in SODIUM CHLORIDE 250 ML IVPB ONE; -IRON SUCROSE INJECTION 100 MG in SODIUM CHLORIDE 100 ML IVPB ONE
[2018-12-20 14:06] VITALS: PULSE 64
[2018-12-20 14:07] VITALS: BP 118/71; TEMP 98.1
== END 2018-12-20 12:35 | disposition home or self-care (01) ==
LOC: JASU-ENDO 10:34
PROVIDERS: ATTEND Internal Medicine
PROC: 3E033GC Introduction of Other Therapeutic Substance into Peripheral Vein, Percutaneous Approach (ICD-10-PCS; principal; 2018-12-20)
DX: D50.9 Iron deficiency anemia, unspecified (principal)
CPT/HCPCS: 96365; J1439

== ENCOUNTER 2018-12-27 10:55 | Day surgery (SDC) | payer OTHER, BC ==
[2018-12-27 15:12] VITALS: BP 122/76; PULSE 68; TEMP 97.8
== END 2018-12-27 13:20 | disposition home or self-care (01) ==
LOC: JASU-ENDO 10:55
PROVIDERS: ATTEND Internal Medicine
PROC: 3E033GC Introduction of Other Therapeutic Substance into Peripheral Vein, Percutaneous Approach (ICD-10-PCS; principal; 2018-12-27)
DX: D50.9 Iron deficiency anemia, unspecified (principal)
CPT/HCPCS: 96365; J1439

== ENCOUNTER 2023-06-16 11:59 | Day surgery (SDC) | payer OTHER, BC ==
[2023-06-16] MEDS: FERRIC CARBOXYMALTOSE 750 MG in SODIUM CHLORIDE 250 ML IVPB ONE (12:32)
[2023-06-16 12:58] VITALS: BP 116/68; PULSE 56; RESP 18; TEMP 98.7
== END 2023-06-16 13:45 | disposition home or self-care (01) ==
LOC: FINFUSION 11:59 → FM/S 12:02 → FINFUSION 13:45
PROVIDERS: ATTEND Internal Medicine
PROC: 3E033GC Introduction of Other Therapeutic Substance into Peripheral Vein, Percutaneous Approach (ICD-10-PCS; principal; 2023-06-16)
DX: D50.9 Iron deficiency anemia, unspecified (principal)
CPT/HCPCS: 96365; J1439

== ENCOUNTER 2023-06-23 12:16 | Day surgery (SDC) | payer OTHER, BC ==
[2023-06-23 12:51] VITALS: BP 133/88; PULSE 62; RESP 18; TEMP 98
[2023-06-23] MEDS: FERRIC CARBOXYMALTOSE 750 MG in SODIUM CHLORIDE 250 ML IVPB ONE (12:56)
== END 2023-06-23 13:57 | disposition home or self-care (01) ==
LOC: FM/S 12:16 → FINFUSION 12:16
PROVIDERS: ATTEND Internal Medicine
PROC: 3E033GC Introduction of Other Therapeutic Substance into Peripheral Vein, Percutaneous Approach (ICD-10-PCS; principal; 2023-06-23)
DX: D50.9 Iron deficiency anemia, unspecified (principal)
CPT/HCPCS: 96365; J1439